=== PATIENT | female | born 1955 | race Caucasian/White ===

== ENCOUNTER 2022-11-02 09:36 | Inpatient (IN) | payer OTHER, MEDICAID ==
[~2022-11-02] VITALS: Ht 157.5 cm; Wt 106.6 kg
[2022-11-02 09:36] VITALS: BP_SYST 139
[2022-11-02] MEDS ORDERED: NITROGLYCERIN 0.4 MG TAB.SUBL SL ONE (10:15)
[2022-11-02] MEDS ORDERED: ICOS1CAP PO (10:16)
[2022-11-02] MEDS ORDERED: SIMV10TA97 PO (10:16)
[2022-11-02] MEDS ORDERED: DIGO125T PO (10:16)
[2022-11-02] MEDS ORDERED: AMLO10TA88 PO (10:16)
[2022-11-02] MEDS ORDERED: CITA40TA16 PO (10:16)
[2022-11-02] MEDS ORDERED: HYDR-500 PO (10:16)
[2022-11-02] MEDS ORDERED: CALC667C4 PO (10:16)
[2022-11-02] MEDS ORDERED: ACETAMINOPHEN 500 MG TABLET PO ONE (10:30)
[2022-11-02 11:01] LABS: BASOPHILS % (AUTO) 0.4 % (0.0-2.0); EOSINOPHILS # (AUTO) 0.6 K/uL (0.0-0.4); EOSINOPHILS % (AUTO) 7.2 % (0.0-4.0); HEMATOCRIT 29.3 % (36-48); HEMOGLOBIN 9.4 g/dL (12.0-16.0); LYMPHOCYTES # (AUTO) 0.7 K/uL (1.0-5.5); LYMPHOCYTES % (AUTO) 8.1 % (20.5-51.5); MEAN CORPUSCULAR HEMOGLOBIN 30 pg (27-31); MEAN CORPUSCULAR HGB CONC 32 % (32-36); MEAN CORPUSCULAR VOLUME 92 fL (79.0-98.0); MONOCYTES # (AUTO) 0.5 K/uL (0.0-1.0); MONOCYTES % (AUTO) 6.4 % (1.7-9.3); NEUTROPHILS # (AUTO) 6.5 K/uL (1.8-7.7); NEUTROPHILS % (AUTO) 77.9 % (40.0-70.0); PLATELET COUNT (AUTO) 279 K/uL (130-430); RED BLOOD CELL COUNT(AUTO) 3.19 MIL/uL (4.2-6.2); RED CELL DISTRIBUTION WIDTH 13.4 % (9.0-15.0); WHITE BLOOD COUNT (AUTO) 8.4 K/uL (4.8-10.8)
[2022-11-02 11:23] LABS: ALANINE AMINOTRANSFERASE 9 U/L (12-78); ALBUMIN 2.9 g/dL (3.4-4.8); ANION GAP 10 (5-15); ASPARTATE AMINOTRANSFERASE 12 U/L (10-37); CALCIUM 8.2 mg/dL (8.4-11.0); CHLORIDE 103 mmol/L (98-107); DIGOXIN 1.9 ng/mL (0.80-2.00); GFR AFRICAN AMERICAN 7 mL/min (>90); GLUCOSE 150 mg/dL (70-99); TOTAL BILIRUBIN 0.4 mg/dL (0.0-1.0); UREA NITROGEN, BLOOD 51 mg/dL (8-21)
[2022-11-02 11:26] LABS: CREATININE 7.82 mg/dL (0.55-1.30)
[2022-11-02 16:40] VITALS: BP_SYST 152
[2022-11-02] MEDS ORDERED: ASPI-1393 PO (17:19)
[2022-11-02 20:00] VITALS: BP_SYST 143
[2022-11-03] MEDS ORDERED: HEPARIN SODIUM,PORCINE 5,000 UNITS/ML VIAL ONE (00:32)
[2022-11-03 01:45] VITALS: BP_SYST 152
[2022-11-03 05:14] LABS: BASOPHILS % (AUTO) 0.6 % (0.0-2.0); EOSINOPHILS # (AUTO) 0.6 K/uL (0.0-0.4); EOSINOPHILS % (AUTO) 6.3 % (0.0-4.0); HEMATOCRIT 31.4 % (36-48); HEMOGLOBIN 10.2 g/dL (12.0-16.0); LYMPHOCYTES # (AUTO) 0.9 K/uL (1.0-5.5); LYMPHOCYTES % (AUTO) 10.7 % (20.5-51.5); MEAN CORPUSCULAR HEMOGLOBIN 30 pg (27-31); MEAN CORPUSCULAR HGB CONC 32 % (32-36); MEAN CORPUSCULAR VOLUME 91 fL (79.0-98.0); MONOCYTES # (AUTO) 0.6 K/uL (0.0-1.0); MONOCYTES % (AUTO) 6.7 % (1.7-9.3); NEUTROPHILS # (AUTO) 6.7 K/uL (1.8-7.7); NEUTROPHILS % (AUTO) 75.7 % (40.0-70.0); PLATELET COUNT (AUTO) 285 K/uL (130-430); RED BLOOD CELL COUNT(AUTO) 3.44 MIL/uL (4.2-6.2); RED CELL DISTRIBUTION WIDTH 13.3 % (9.0-15.0); WHITE BLOOD COUNT (AUTO) 8.8 K/uL (4.8-10.8)
[2022-11-03 05:34] LABS: CALCIUM 8.2 mg/dL (8.4-11.0); CREATININE 5.68 mg/dL (0.55-1.30)
[2022-11-03 07:20] VITALS: BP_SYST 144
[2022-11-03 09:15] VITALS: BP_SYST 144
[2022-11-03] MEDS ORDERED: ASPIRIN 81 MG TABLET(ECOTRIN) PO ONE (10:00)
[2022-11-03] MEDS ORDERED: DIGOXIN 0.125 MG TABLET PO ONE (10:00)
[2022-11-03 11:25] VITALS: BP_SYST 143
[2022-11-03] MEDS ORDERED: ONDANSETRON HCL 4 MG/2 ML VIAL IM PRN (12:30)
[2022-11-03] MEDS ORDERED: ALPRAZolam 0.25 MG TABLET PO PRN (12:30)
[2022-11-03 14:17] VITALS: BP_SYST 143
[2022-11-03] MEDS ORDERED: HEPARIN SODIUM,PORCINE 5,000 UNITS/ML VIAL MC ONE ×2 (14:30→14:45)
[2022-11-03] MEDS ORDERED: CALCIUM ACETATE 667 MG CAP PO SCH (15:00)
[2022-11-03 15:18] VITALS: BP_SYST 142
[2022-11-03] MEDS ORDERED: SIMVASTATIN 10 MG TABLET PO SCH (21:00)
[2022-11-04] MEDS ORDERED: DIGOXIN 0.125 MG TABLET PO SCH (09:00)
[2022-11-04] MEDS ORDERED: ASPIRIN 81 MG TABLET(ECOTRIN) PO SCH (09:00)
[2022-11-04] MEDS ORDERED: amLODIPine BESYLATE 10 MG TABLET PO SCH (09:00)
== END 2022-11-03 17:41 | disposition home or self-care (01) | DRG 291 ==
LOC: SED 09:36 → STU 14:43
PROVIDERS: ADMIT Specialist; ATTEND Specialist
PROC: 5A1D70Z Performance of Urinary Filtration, Intermittent, Less than 6 Hours Per Day (ICD-10-PCS; principal; 2022-11-02)
PROC: 5A1D70Z Performance of Urinary Filtration, Intermittent, Less than 6 Hours Per Day (ICD-10-PCS; 2022-11-03)
DX: I13.2 Hypertensive heart and chronic kidney disease with heart failure and with stage 5 chronic kidney disease, or end stage renal disease (principal); I50.43 Acute on chronic combined systolic (congestive) and diastolic (congestive) heart failure; N18.6 End stage renal disease; Z68.41 Body mass index [BMI] 40.0-44.9, adult; R07.89 Other chest pain; I25.10 Atherosclerotic heart disease of native coronary artery without angina pectoris; E11.22 Type 2 diabetes mellitus with diabetic chronic kidney disease; E78.5 Hyperlipidemia, unspecified; F41.9 Anxiety disorder, unspecified; E11.319 Type 2 diabetes mellitus with unspecified diabetic retinopathy without macular edema; E11.40 Type 2 diabetes mellitus with diabetic neuropathy, unspecified; F32.A Depression, unspecified; E66.01 Morbid (severe) obesity due to excess calories; Z88.0 Allergy status to penicillin; Z91.012 Allergy to eggs
CPT/HCPCS: 36415; 71045; 80048; 80053; 80162; 83880; 84484; 85025; 87081; 90935; 90937; 93005; 99285; C1751; G0378; J1644

== ENCOUNTER 2022-11-09 18:17 | Emergency (ER) | payer OTHER, MEDICAID ==
[~2022-11-09] VITALS: Ht 157.5 cm; Wt 94.8 kg
[~2022-11-09 18:17] MED LIST: AMLO10TA88 PO; ASPI-1393 PO; CALC667C4 PO; CITA40TA16 PO; DIGO125T PO; HYDR-500 PO; ICOS1CAP PO; SIMV10TA97 PO
[2022-11-09] MEDS ORDERED: LIDOCAINE 1% 10 MG/ML, 20 ML MDV INJ ONE (18:45)
[2022-11-09 18:47] VITALS: BP_SYST 151
[2022-11-09 19:18] VITALS: BP_SYST 151
== END 2022-11-09 19:18 | disposition home or self-care (01) ==
LOC: SED 18:17
DX: S41.112A Laceration without foreign body of left upper arm, initial encounter (principal); T81.30XA Disruption of wound, unspecified, initial encounter; I10 Essential (primary) hypertension; Z79.899 Other long term (current) drug therapy; X58.XXXA Exposure to other specified factors, initial encounter; Y93.89 Activity, other specified; Y92.89 Other specified places as the place of occurrence of the external cause; Y99.8 Other external cause status
CPT/HCPCS: 99282

== ENCOUNTER 2022-12-31 19:56 | Inpatient (IN) | payer MEDICAID, OTHER ==
[~2022-12-31] VITALS: Ht 160 cm; Wt 89.8 kg
[2022-12-31 20:00] VITALS: BP_SYST 142; PULSE 71; RESP 22; TEMP 98.7; O2SAT 100
--- NOTE | 2022-12-31 20:00 | NUR ---
BROUGHT IN BY [facility], PLACED IN BED #2 AND TRIAGED. REPORT GIVEN TO ADILSON
--- NOTE | 2022-12-31 20:01 | NUR ---
RT AT BEDSIDE.
[2022-12-31] MEDS ORDERED: IPRATROPIUM BROM 0.5 MG/2.5 ML VIAL.NEB (ATROVENT) INH ONE (20:08)
[2022-12-31] MEDS ORDERED: ALBUTEROL SULFATE 0.083% 2.5 MG/3 ML VIAL.NEB INH ONE (20:08)
--- NOTE | 2022-12-31 20:10 | NUR ---
DR. TURNER AT BEDSIDE EXAMINING THE PATIENT.
[2022-12-31] MEDS ORDERED: IPRATROPIUM/ALBUTEROL SULFATE 3 ML AMPUL.NEB (DUONEB) INH ONE (20:15)
[2022-12-31 20:25] LABS: BASOPHILS % (AUTO) 0.2 % (0.0-2.0); EOSINOPHILS # (AUTO) 0.2 K/uL (0.0-0.4); HEMATOCRIT 33.6 % (36-48); HEMOGLOBIN 10.3 g/dL (12.0-16.0); LYMPHOCYTES # (AUTO) 0.9 K/uL (1.0-5.5); LYMPHOCYTES % (AUTO) 4.5 % (20.5-51.5); MEAN CORPUSCULAR HEMOGLOBIN 27 pg (27-31); MEAN CORPUSCULAR HGB CONC 31 % (32-36); MEAN CORPUSCULAR VOLUME 89 fL (79.0-98.0); MONOCYTES # (AUTO) 0.8 K/uL (0.0-1.0); MONOCYTES % (AUTO) 4.2 % (1.7-9.3); NEUTROPHILS # (AUTO) 18.2 K/uL (1.8-7.7); NEUTROPHILS % (AUTO) 90.1 % (40.0-70.0); PLATELET COUNT (AUTO) 307 K/uL (130-430); RED BLOOD CELL COUNT(AUTO) 3.78 MIL/uL (4.2-6.2); RED CELL DISTRIBUTION WIDTH 14.8 % (9.0-15.0); WHITE BLOOD COUNT (AUTO) 20.2 K/uL (4.8-10.8)
[2022-12-31 20:40] LABS: ALANINE AMINOTRANSFERASE 17 U/L (12-78); ALBUMIN 4.1 g/dL (3.4-4.8); ANION GAP 12 (5-15); ASPARTATE AMINOTRANSFERASE 12 U/L (10-37); CHLORIDE 100 mmol/L (98-107); GFR AFRICAN AMERICAN 3 mL/min (>90); GLUCOSE 138 mg/dL (74-106); TOTAL BILIRUBIN 0.5 mg/dL (0.0-1.0); UREA NITROGEN, BLOOD 93 mg/dL (8-21)
[2022-12-31] MEDS ORDERED: ONDANSETRON HCL 4 MG/2 ML VIAL IVP ONE (20:45)
[2022-12-31 20:46] LABS: CREATININE 16.44 mg/dL (0.55-1.30)
[2022-12-31] MEDS ORDERED: CALCIUM GLUCONATE 1 GM/10 ML VIAL IVP ONE (21:00)
[2022-12-31] MEDS ORDERED: INSULIN REGULAR, HUMAN 10 UNITS/0.1 ML, 3 ML VIAL IVP ONE (21:00)
[2022-12-31] MEDS ORDERED: SODIUM BICARBONATE 8.4% JECT 50 MEQ/50 ML SYRINGE IVP ONE (21:00)
[2022-12-31] MEDS ORDERED: DEXTROSE 50% JECT 50 ML DISP.SYRIN IVP ONE (21:00)
[2022-12-31] MEDS ORDERED: SODIUM POLYSTYRENE SULFONATE 15 GM/60 ML UDBTL PO ONE (21:30)
[2022-12-31] MEDS ORDERED: FUROSEMIDE 100 MG/10 ML VIAL IVP ONE (21:30)
--- NOTE | 2022-12-31 21:49 | NUR ---
Admit bed requested Patient will be admitted to care of Dr. MONSON. Admitted to ICU unit. Diagnosis SEPSIS, RENAL FAILURE, CHF EXACERBATION Inpatient (Yes or No) YES Observation (Yes or No) NO Orientation concerns or request close to nursing station (Yes or No) NO Covid Status PENDING On vent or bipap NO Isolation requirements NONE Needs a sitter NO From Home (Yes or if No enter name of facility) YES Requires Dialysis (Yes or No) YES Med Rec Completed (Yes of No) YES
[2022-12-31] MEDS ORDERED: ACETAMINOPHEN 325 MG TABLET PO ONE (22:00)
[2022-12-31] MEDS ORDERED: NITROGLYCERIN 1 INCH (GM) OINT. TP ONE (22:00)
--- NOTE | 2022-12-31 22:39 | NUR ---
Admit bed requested Patient will be admitted to care of Dr. MONSON. Admitted to TELEMETRY unit. Diagnosis SEPSIS, RENAL FAILURE, CHF EXACERBATION Inpatient (Yes or No) YES Observation (Yes or No) NO Orientation concerns or request close to nursing station (Yes or No) NO Covid Status PENDING On vent or bipap NO Isolation requirements NONE Needs a sitter NO From Home (Yes or if No enter name of facility) YES Requires Dialysis (Yes or No) YES Med Rec Completed (Yes of No) YES
[2022-12-31] MEDS ORDERED: NALOXONE HCL 0.4 MG/ML AMP (NARCAN) IVP PRN ×2 (23:30)
[2022-12-31] MEDS ORDERED: ONDANSETRON HCL 4 MG/2 ML VIAL IVP PRN (23:30)
[2022-12-31] MEDS ORDERED: ACETAMINOPHEN 325 MG TABLET PO PRN (23:30)
[2022-12-31] MEDS ORDERED: HYDROcodone/ACETAMIN 5-325 MG TAB (NORCO/ VICODIN) PO PRN (23:30)
--- NOTE | 2022-12-31 23:30 | NUR ---
Patient will be admitted to care of DR. MONSON. Admitted to TELEMETRY unit. Will go to room 105A. Belongings list completed. Complete and up to date summary report printed. SBAR report to be given at bedside with opportunity for questions.
--- NOTE | 2022-12-31 23:55 | NUR ---
UNABLE TO UPDATE MEDICATION RECONCILIATION, DR. MONSON VERIFIED MEDS.
[2023-01-01] VITALS (8 sets, daily range): BP systolic 105–141; PULSE 68–88; RESP 16–22; TEMP 97.2–98.1; O2SAT 95–99
[2023-01-01] MEDS ORDERED: MORPHINE 4 MG INJ. 4 MG/ML VIAL IVP ONE
--- NOTE | 2023-01-01 00:15 | NUR ---
ADMISSION NOTE Received patient from ER via gurney. Patient admitted with diagnosis of Renal Failure and sepsis. at bedside. PT reported SOB. Breathing via NC O2 3L. Patient is awake, alert, oriented X 4. Patient oriented to hospital room, call light, toileting, pain management and safety-teach back done. Personal belongings checked and Belongings List documented. Call light within reach. Continue to monitor
--- NOTE | 2023-01-01 00:20 | NUR ---
CONSULTATION PAGED/CALLED Reason for Consultation: RENAL FAILURE Person Who was Notified: ADEBAYO Consulting Physician: DR. PEACE/DR. 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 IONA PEREZ
[2023-01-01] MEDS ORDERED: HEPARIN SODIUM, PORCINE 10,000 UNITS/ 10 ML VIAL MC ONE (01:15)
[2023-01-01] MEDS: HYDROcodone/ACETAMIN 10-325 MG TAB PO PRN ×4 (03:48→18:39)
--- NOTE | 2023-01-01 03:49 | NUR ---
CONSULTATION PAGED/CALLED Reason for Consultation: LEUKOCYTOSIS Person Who was Notified: PEE Consulting Physician: DAVID Manufacturing Plant Controller Specialty: ID Ordering Physician: ADA
--- NOTE | 2023-01-01 04:13 | NUR ---
CONSULTATION PAGED/CALLED Reason for Consultation: CHF Person Who was Notified: MINA VIA TEXT Consulting Physician: MINA Corsetier Specialty: CARDIO Ordering Physician: ADA
--- NOTE | 2023-01-01 05:32 | NUR ---
HEPARIN THERE WAS ORDER FOR HEPARIN. DIALYSIS NURSE GAVE HER THROUGH [facility].
--- NOTE | 2023-01-01 06:18 | NUR ---
CHEST PAIN PT REPORTED CHEST PAIN 02/02 WHILE BREATHING. PT ALREADY GIVEN NORCO 10, DOESN'T RELIEVE PAIN. CALLED DR. MONSON FOR NEW ORDER FOR PAIN.
--- NOTE | 2023-01-01 06:24 | NUR ---
HIGH ALERT NOTE: Called Dr. MONSON back at 0620. ORDERED MORPHINE 2mg IV ONCE. identified within the medical roster to verify physician authenticity.
[2023-01-01] MEDS: NORMAL SALINE 5 ML DISP.SYRIN IVF SCH ×3 (06:27→20:15)
[2023-01-01] MEDS ORDERED: MORPHINE 2 MG/ML INJ. SYRINGE IVP ONE (06:30)
--- NOTE | 2023-01-01 06:59 | NUR ---
CLOSING NOTE PT LYING IN BED AND EYES OPEN. A/OX4. BREATHING LABORED VIA NC O2 3L. LUNG SOUNDS CLEAR. PAIN GOES DOWN. SAFETY CHECKS IN PLACE. CALL LIGHT IN REACH. ENDORSED TO DAY SHIFT NURSE
[2023-01-01 07:57] LABS: CALCIUM 8.5 mg/dL (8.4-11.0); PHOSPHORUS 6.3 mg/dL (2.7-4.5)
[2023-01-01 08:05] LABS: BASOPHILS # (AUTO) 0.1 K/uL (0.0-0.2); BASOPHILS % (AUTO) 0.6 % (0.0-2.0); EOSINOPHILS % (AUTO) 0.1 % (0.0-4.0); HEMATOCRIT 31.3 % (36-48); HEMOGLOBIN 9.6 g/dL (12.0-16.0); LYMPHOCYTES # (AUTO) 0.5 K/uL (1.0-5.5); LYMPHOCYTES % (AUTO) 3.4 % (20.5-51.5); MEAN CORPUSCULAR HEMOGLOBIN 27 pg (27-31); MEAN CORPUSCULAR HGB CONC 31 % (32-36); MEAN CORPUSCULAR VOLUME 88 fL (79.0-98.0); MONOCYTES # (AUTO) 0.8 K/uL (0.0-1.0); MONOCYTES % (AUTO) 5.7 % (1.7-9.3); NEUTROPHILS # (AUTO) 12.9 K/uL (1.8-7.7); NEUTROPHILS % (AUTO) 90.2 % (40.0-70.0); PLATELET COUNT (AUTO) 237 K/uL (130-430); RED BLOOD CELL COUNT(AUTO) 3.54 MIL/uL (4.2-6.2); RED CELL DISTRIBUTION WIDTH 14.7 % (9.0-15.0)
--- NOTE | 2023-01-01 08:11 | NUR ---
Opening note: Patient on bed, resting with at bedside. On 3 liters nasal canula. LT arm shunt for dialysis IV on right arm, patent, no s/s of infiltration or edema. No s/s of SOB, discomfort and denies pain. Bed set at lowest position, locked, HOB elevated. All safety and fall risk precautions put into affect. Call light within reach. WIll continue to monitor.
[2023-01-01 08:32] LABS: CREATININE 11.27 mg/dL (0.55-1.30)
[2023-01-01] MEDS ORDERED: NON-FORMULARY MEDICATION (Icosapent Ethyl (Vascepa) 2 CAP) PO SCH (09:00)
--- NOTE | 2023-01-01 09:00 | NUR ---
MD DR. GARCIA, ON UNIT ROPUNDING ON PATIENT. MADE AWARE OF CRITICAL CREATINE 11.27. NO NEW ORDERS.
[2023-01-01 09:01] LABS: WHITE BLOOD COUNT (AUTO) 14.3 K/uL (4.8-10.8)
--- NOTE | 2023-01-01 09:20 | NUR ---
Meds Patient found in room. Tolerated meds well. IV flushed, patent, no s/s of infiltration or edema.
[2023-01-01] MEDS: CALCIUM ACETATE 667 MG CAP PO SCH ×3 (09:33→20:14)
[2023-01-01] MEDS: DIGOXIN 0.125 MG TABLET PO SCH (09:34)
[2023-01-01] MEDS: amLODIPine BESYLATE 10 MG TABLET PO SCH (09:35)
[2023-01-01] MEDS: CITALOPRAM HYDROBROMIDE 20 MG TABLET PO SCH (09:35)
[2023-01-01] MEDS: ASPIRIN 81 MG TABLET(ECOTRIN) PO SCH (09:36)
--- NOTE | 2023-01-01 11:20 | NUR ---
Critical Labs: Received critical labs from Kirti at lab. Dr. Mijares received critical labs (D-Dimer), (facetoface) in hospital. Addendum: 01/01/23 at 1840 by Yamile SPENCERN Per Dr. Mijares. No new orders needed.
[2023-01-01] MEDS ORDERED: FUROSEMIDE 40 MG/4 ML VIAL IVP ONE (12:00)
[2023-01-01] MEDS ORDERED: CARVEDILOL 3.125 MG TABLET (COREG) PO ONE (12:15)
[2023-01-01] MEDS: DIPHENHYDRAMINE HCL 50 MG CAPSULE PO PRN (14:35)
--- NOTE | 2023-01-01 15:10 | NUR ---
Radiologist: Per radiologist tech. Need to r/s exam due to patient feeling drowsy and not able to continue exam. Will proceed tomorrow morning. Checked IV and is patent, no infiltration or edema present. Patient felt SOB when returning from radiology exam. Calld Addendum: 01/01/23 at 1848 by Yamile SPENCERN Radiologist: Per radiologist tech. Need to r/s exam due to patient feeling drowsy and not able to continue exam. Will proceed tomorrow morning. Checked IV and is patent, no infiltration or edema present. Patient felt SOB when returning from radiology exam. Called Dr. Yuen: Request new order for respiratory therapist. New order in place for RT.
[2023-01-01] MEDS ORDERED: IPRATROPIUM/ALBUTEROL SULFATE 3 ML AMPUL.NEB (DUONEB) ONE (16:42)
[2023-01-01] MEDS ORDERED: IPRATROPIUM/ALBUTEROL SULFATE 3 ML AMPUL.NEB (DUONEB) INH PRN (16:45)
--- NOTE | 2023-01-01 18:48 | NUR ---
Closing note: Patient in bed with family at bedside eating dinner. IV patent, no signs of infiltration or edema.Bed set at lowest position, locked, call light within reach. Fall risk and safety precautions put into affect. Patient is alert , states she has RT arm pain. No labored breathing present. Will endorse to next shift nurse.
[2023-01-01] MEDS: CARVEDILOL 3.125 MG TABLET (COREG) PO SCH (20:14)
[2023-01-01] MEDS: SIMVASTATIN 10 MG TABLET PO SCH (20:14)
--- NOTE | 2023-01-01 20:21 | NUR ---
IV RE-INSERTION: Complaining of pain/Sswelling to IV site. Restarted on right wrist g. 22 . Successful after 1 attempt. Will observe for any signs of infiltration. Addendum: 01/01/23 at 2137 by Sandi Calix RN elevate right arm to pillow due to swelling
[2023-01-01] MEDS: ICOSAPENT ETHYL PO SCH (21:17)
--- NOTE | 2023-01-01 22:37 | NUR ---
PATIENT RESTING: Patient resting quietly. No acute distress noted. telemetry NSR
[2023-01-02] VITALS: BP_SYST 151; PULSE 57; RESP 20; TEMP 97.1; O2SAT 94
--- NOTE | 2023-01-02 00:52 | NUR ---
Seen and examined by Dr. Philip Beltre with n.o. carried out
[2023-01-02] MEDS ORDERED: VANCOMYCIN HCL 1 GM/NS PREMIX 250 ML IV ONE (01:15)
[2023-01-02] MEDS: HYDROcodone/ACETAMIN 10-325 MG TAB PO PRN (02:37)
[2023-01-02 02:43] VITALS: BP_SYST 152; PULSE 62; RESP 20; O2SAT 93
[2023-01-02 05:26] LABS: BASOPHILS % (AUTO) 0.2 % (0.0-2.0); EOSINOPHILS # (AUTO) 0.2 K/uL (0.0-0.4); EOSINOPHILS % (AUTO) 1.7 % (0.0-4.0); HEMATOCRIT 30.1 % (36-48); HEMOGLOBIN 9.3 g/dL (12.0-16.0); LYMPHOCYTES # (AUTO) 0.7 K/uL (1.0-5.5); LYMPHOCYTES % (AUTO) 6.3 % (20.5-51.5); MEAN CORPUSCULAR HEMOGLOBIN 28 pg (27-31); MEAN CORPUSCULAR HGB CONC 31 % (32-36); MEAN CORPUSCULAR VOLUME 89 fL (79.0-98.0); MONOCYTES # (AUTO) 0.9 K/uL (0.0-1.0); MONOCYTES % (AUTO) 7.9 % (1.7-9.3); NEUTROPHILS % (AUTO) 83.9 % (40.0-70.0); PLATELET COUNT (AUTO) 202 K/uL (130-430); RED BLOOD CELL COUNT(AUTO) 3.37 MIL/uL (4.2-6.2); RED CELL DISTRIBUTION WIDTH 14.7 % (9.0-15.0); WHITE BLOOD COUNT (AUTO) 11.9 K/uL (4.8-10.8)
[2023-01-02 05:27] LABS: ERYTHROCYTE SEDIMENTATION RATE 56 MM/HR (0-20)
[2023-01-02 06:00] LABS: ALBUMIN 3.7 g/dL (3.4-4.8); PHOSPHORUS 8.5 mg/dL (2.7-4.5); TOTAL BILIRUBIN 0.5 mg/dL (0.0-1.0)
[2023-01-02] MEDS: NORMAL SALINE 5 ML DISP.SYRIN IVF SCH ×3 (06:04→21:05)
[2023-01-02 06:07] LABS: CREATININE 12.99 mg/dL (0.55-1.30)
[2023-01-02 07:00] VITALS: O2SAT 95
[2023-01-02] MEDS ORDERED: VANCOMYCIN HCL 500 MG in NS 100 ML IV ONE (08:00)
[2023-01-02] MEDS: ICOSAPENT ETHYL PO SCH ×2 (09:00→21:13)
[2023-01-02] MEDS: CARVEDILOL 3.125 MG TABLET (COREG) PO SCH ×2 (09:00→21:05)
[2023-01-02] MEDS: CALCIUM ACETATE 667 MG CAP PO SCH ×3 (09:32→21:04)
[2023-01-02 10:57] VITALS: BP_SYST 140; PULSE 79; RESP 17; O2SAT 97
[2023-01-02] MEDS ORDERED: HEPARIN SODIUM,PORCINE 5,000 UNITS/ML VIAL MC ONE (11:30)
[2023-01-02] MEDS ORDERED: HYDROCORTISONE 0.5% CREAM 28.4 GM CREAM.GM. TP PRN ×2 (11:30)
[2023-01-02] MEDS: CITALOPRAM HYDROBROMIDE 20 MG TABLET PO SCH (12:55)
[2023-01-02] MEDS: ASPIRIN 81 MG TABLET(ECOTRIN) PO SCH (12:55)
[2023-01-02] MEDS: amLODIPine BESYLATE 10 MG TABLET PO SCH (12:57)
[2023-01-02] MEDS: DIGOXIN 0.125 MG TABLET PO SCH (12:59)
[2023-01-02] MEDS ORDERED: predniSONE 20 MG TABLET PO ONE (13:15)
[2023-01-02 16:49] VITALS: BP_SYST 119; PULSE 78; RESP 17; TEMP 97.6; O2SAT 97
[2023-01-02 20:10] VITALS: BP_SYST 155; PULSE 64; RESP 20; TEMP 96.6; O2SAT 97
--- NOTE | 2023-01-02 20:10 | NUR ---
PM ASSESSMENT; -Patient is awake, alert, oriented X 4. Pt denies any chest pain,pain,sob,or acute distress noted. Patient oriented to hospital room, call light, toileting, pain management and safety-teach back done. Hemodialysis on rt chest wall drsg cdi. AILYN-another hemodialysis access drsg cdi. Patient informed that I ( Sabrina) will be her nurse and that her room number is 105-A. Discussed poc, all safety measures, or if experiencing any pain,sob,or any acute distress to use call light to inform me, family & she verbalized understanding. Bed alarmed, side rail x2, call light within reach. Cont to monitor pt.
[2023-01-02] MEDS ORDERED: HEPARIN SODIUM,PORCINE 5,000 UNITS/ML VIAL SUBCUT SCH (21:00)
[2023-01-02] MEDS: predniSONE 20 MG TABLET PO SCH (21:04)
[2023-01-02] MEDS: SIMVASTATIN 10 MG TABLET PO SCH (21:04)
--- NOTE | 2023-01-02 21:30 | NUR ---
PATIENT DOING MUCH BETTER BREATHING EFFECTIVE. JOSELIN KWOK AND WILL RECEIVE AGAIN TOMORROW THEN WILL BE DISCHARGE IF NO FURTHER PROBLEMS.
--- NOTE | 2023-01-02 22:44 | NUR ---
RD Recommendations *Recommend Renal, Consistent Carb Diet + Nepro BID -Recommend chopped textures with moist foods for ease of chewing and swallowing. -ordered *Monitor PO intakes, GI, skin, and labs Please refer to RD Assessment 01/02/23 for details MADYSON HUYNH Addendum: 01/02/23 at [address] Amended: Links added.
--- NOTE | 2023-01-03 00:21 | NUR ---
ROUNDS; -Pt is resting in bed comfortably. Pt denies any chest pain,pain,sob,or acute distress noted. Fall precaution in place. Bed alarmed, side rail x2, call light within reach. Cont to monitor pt.
[2023-01-03 01:15] VITALS: BP_SYST 145; PULSE 58; RESP 16; TEMP 97.5; O2SAT 95
[2023-01-03 03:07] LABS: HEPATITIS A AB, IgM Negative (Negative); HEPATITIS B CORE AB, IgM Negative (Negative); HEPATITIS B SURFACE AG Negative (Negative)
--- NOTE | 2023-01-03 04:18 | NUR ---
ROUNDS; -Pt is resting in bed comfortably. NO s/s any chest pain,pain,sob,or acute distress noted. Fall precaution in place. Bed alarmed, side rail x2, call light within reach. Cont to monitor pt.
[2023-01-03] MEDS: NORMAL SALINE 5 ML DISP.SYRIN IVF SCH ×3 (05:44→20:22)
--- NOTE | 2023-01-03 06:26 | NUR ---
CLOSING NOTES; -Pt is resting in bed comfortably. NO s/s any chest pain,pain,sob,or acute distress noted. IV site patent drsg cdi. Fall precaution in place. Bed alarmed, side rail x3, call light within reach. Pt's condition stable. Will endorse to next nurse to continuity of care.
[2023-01-03 06:50] LABS: BASOPHILS % (AUTO) 0.3 % (0.0-2.0); HEMOGLOBIN 9.1 g/dL (12.0-16.0); LYMPHOCYTES # (AUTO) 0.5 K/uL (1.0-5.5); LYMPHOCYTES % (AUTO) 8.5 % (20.5-51.5); MEAN CORPUSCULAR HEMOGLOBIN 28 pg (27-31); MEAN CORPUSCULAR HGB CONC 31 % (32-36); MEAN CORPUSCULAR VOLUME 89 fL (79.0-98.0); MONOCYTES # (AUTO) 0.2 K/uL (0.0-1.0); MONOCYTES % (AUTO) 2.7 % (1.7-9.3); NEUTROPHILS % (AUTO) 88.5 % (40.0-70.0); PLATELET COUNT (AUTO) 201 K/uL (130-430); RED BLOOD CELL COUNT(AUTO) 3.26 MIL/uL (4.2-6.2); RED CELL DISTRIBUTION WIDTH 14.7 % (9.0-15.0); WHITE BLOOD COUNT (AUTO) 5.7 K/uL (4.8-10.8)
--- NOTE | 2023-01-03 07:19 | NUR ---
NOTES; ENDORSED TO MELLISSA TO ASK DR. VALDES IF HE WANTS TO ORDER HEMODIALYSIS TODAY.
[2023-01-03 07:56] LABS: CALCIUM 8.5 mg/dL (8.4-11.0); VANCOMYCIN,RANDOM 6.4 ug/mL
[2023-01-03 08:00] VITALS: BP_SYST 133; PULSE 63; RESP 20; TEMP 96.8; O2SAT 95
--- NOTE | 2023-01-03 08:00 | NUR ---
A/OX4,VSS,ON O2 3L/NC,SAT 95%,RESPIRATES EVEN AND UNLABORED NEEDS ATTENDED,CALL LIGHT & PERSONAL ITEMS WITHIN PT REACH SAFETY MAINTAINED.
[2023-01-03 08:02] LABS: CREATININE 10.32 mg/dL (0.55-1.30)
[2023-01-03] MEDS: ICOSAPENT ETHYL PO SCH ×3 (09:00→20:22)
[2023-01-03] MEDS: amLODIPine BESYLATE 10 MG TABLET PO SCH (09:29)
[2023-01-03] MEDS: CALCIUM ACETATE 667 MG CAP PO SCH ×3 (09:29→20:20)
[2023-01-03] MEDS: ASPIRIN 81 MG TABLET(ECOTRIN) PO SCH (09:30)
[2023-01-03] MEDS: DIGOXIN 0.125 MG TABLET PO SCH (09:30)
[2023-01-03] MEDS: predniSONE 20 MG TABLET PO SCH ×2 (09:30→20:21)
[2023-01-03] MEDS: CITALOPRAM HYDROBROMIDE 20 MG TABLET PO SCH (09:30)
[2023-01-03] MEDS: CARVEDILOL 3.125 MG TABLET (COREG) PO SCH ×2 (09:30→20:21)
[2023-01-03 12:00] VITALS: BP_SYST 162; PULSE 69; RESP 18; TEMP 97.1; O2SAT 96
--- NOTE | 2023-01-03 12:00 | NUR ---
PT CONTINUE RESTING IN BED,BUT IV IN RIGHT ARM CAME OUT,UNABLE TO RESTART D/T HARD STICK, CALLED AND NOTIFIED,HE SAID HE WILL COME TO SEE THE PATIENT.
[2023-01-03] MEDS ORDERED: VANCOMYCIN HCL 750 MG in NS 250 ML IV ONE (14:00)
[2023-01-03] MEDS: DIPHENHYDRAMINE HCL 50 MG CAPSULE PO PRN ×2 (14:44→21:07)
[2023-01-03] MEDS: HYDROcodone/ACETAMIN 10-325 MG TAB PO PRN (14:44)
--- NOTE | 2023-01-03 15:00 | NUR ---
PT C/O CHEST PAIN WITH BREATHING,GIVE NORCO 1 TAB PO PRN ORDER FOR SEVERE PAIN CAME AND SEEN PT AND AWARED OF PT HAS CP.PT NOT FOR D/C TODAY AND OBTAINED ORDER FOR MIDLINE.
[2023-01-03] MEDS ORDERED: PANTOPRAZOLE SODIUM 40 MG TAB PO ONE (15:15)
--- NOTE | 2023-01-03 16:22 | NUR ---
>>>PT NOTES<<< PATIENT REFUSED PHYSICAL THERAPY AND STATES SHE IS TIRED TO PARTICIPATE TODAY. WILL FOLLOW UP TOMORROW, 01/04/23.
--- NOTE | 2023-01-03 17:00 | NUR ---
dialysis nurse carmel called and said she just spoke to tooth grinder that pt had HD yesterday and next HD will be tomorrow.
[2023-01-03] MEDS: SUCRALFATE 1 GM/10 ML UDC GT SCH ×2 (17:14→20:20)
[2023-01-03 17:29] VITALS: BP_SYST 152; PULSE 60; RESP 20; TEMP 97; O2SAT 96
--- NOTE | 2023-01-03 18:26 | NUR ---
midline inserted by picc line nurse in right upper arm,pt tolerated well.
[2023-01-03 19:42] VITALS: BP_SYST 136; PULSE 66; RESP 18; TEMP 97.5; O2SAT 96
--- NOTE | 2023-01-03 19:42 | NUR ---
PM ASSESSMENT; -Patient is awake, alert, oriented X 4. Pt denies any chest pain,pain,sob,or acute distress noted. Patient oriented to hospital room, call light, toileting, pain management and safety-teach back done. Hemodialysis on rt chest wall drsg cdi. AILYN-another hemodialysis access drsg cdi. Pt has JORGE midline drsg cdi both ports patent flushed well w/ ns. Discussed poc, all safety measures, or if experiencing any pain,sob,or any acute distress to use call light to inform me, family & she verbalized understanding. Bed alarmed, side rail x3, call light within reach. Cont to monitor pt.
[2023-01-03] MEDS: SIMVASTATIN 10 MG TABLET PO SCH (20:21)
[2023-01-03] MEDS: LORazepam 2 MG/ML VIAL IVP PRN (22:42)
--- NOTE | 2023-01-03 22:42 | NUR ---
NOTES; ATIVAN IVP GIVEN UPON PT'S REQUEST -Pt is anxious, gave Ativan IVP upon pt's request. Call light w/in reach. Cont to monitor pt.
--- NOTE | 2023-01-03 23:47 | NUR ---
ROUNDS; -Pt is resting in bed comfortably. No s/s any acute distress noted. Bed alarmed, side rail x3, call light within reach. Cont to monitor pt.
[2023-01-04] VITALS (7 sets, daily range): BP systolic 120–165; PULSE 62–73; RESP 16–20; TEMP 97.1–97.9; O2SAT 94–99
--- NOTE | 2023-01-04 04:22 | NUR ---
NOTES; -Pt is resting in bed comfortably. No s/s any acute distress noted. All safety measures in place. Call light w/in reach. cont to monitor pt.
[2023-01-04 06:13] LABS: BASOPHILS % (AUTO) 0.4 % (0.0-2.0); HEMATOCRIT 29.5 % (36-48); HEMOGLOBIN 9.2 g/dL (12.0-16.0); LYMPHOCYTES # (AUTO) 0.5 K/uL (1.0-5.5); LYMPHOCYTES % (AUTO) 5.7 % (20.5-51.5); MEAN CORPUSCULAR HEMOGLOBIN 28 pg (27-31); MEAN CORPUSCULAR HGB CONC 31 % (32-36); MEAN CORPUSCULAR VOLUME 89 fL (79.0-98.0); MONOCYTES # (AUTO) 0.2 K/uL (0.0-1.0); MONOCYTES % (AUTO) 2.1 % (1.7-9.3); NEUTROPHILS # (AUTO) 7.6 K/uL (1.8-7.7); NEUTROPHILS % (AUTO) 91.8 % (40.0-70.0); PLATELET COUNT (AUTO) 250 K/uL (130-430); RED BLOOD CELL COUNT(AUTO) 3.33 MIL/uL (4.2-6.2); RED CELL DISTRIBUTION WIDTH 14.4 % (9.0-15.0); WHITE BLOOD COUNT (AUTO) 8.3 K/uL (4.8-10.8)
[2023-01-04] MEDS: NORMAL SALINE 5 ML DISP.SYRIN IVF SCH ×3 (06:31→20:57)
[2023-01-04] MEDS: SUCRALFATE 1 GM/10 ML UDC GT SCH ×4 (06:31→20:56)
--- NOTE | 2023-01-04 06:33 | NUR ---
CLOSING NOTES; -Pt is resting in bed comfortably. NO s/s any chest pain,pain,sob,or acute distress noted. JORGE midline patent drsg cdi. Fall precaution in place. Bed alarmed, side rail x3, call light within reach. Pt's condition stable. Will endorse to next nurse to continuity of care.
[2023-01-04 06:53] LABS: ALBUMIN 3.5 g/dL (3.4-4.8); CALCIUM 8.5 mg/dL (8.4-11.0); TOTAL BILIRUBIN 0.3 mg/dL (0.0-1.0); VANCOMYCIN,RANDOM 15.1 ug/mL
[2023-01-04 07:02] LABS: CREATININE 11.82 mg/dL (0.55-1.30)
--- NOTE | 2023-01-04 07:26 | NUR ---
NOTES; ENDORSED TO LEE GONZALES TO NOTIFY MD REGARDING CRITICAL LAB=K=5.9 AND CREAT=11.82.
--- NOTE | 2023-01-04 08:00 | NUR ---
pt A/Ox4,vss,resting well in bed,on O2 3L/NC,sat 97%, called and notified him of K level 5.9 and creatinine 11.82 per am lab,pt due for HD today per dr stanley.
[2023-01-04] MEDS: LORazepam 2 MG/ML VIAL IVP PRN (08:51)
[2023-01-04] MEDS: ICOSAPENT ETHYL PO SCH ×2 (09:00→20:59)
--- NOTE | 2023-01-04 12:00 | NUR ---
pt had HD done and removed 3L per HD nurse, pt tolerated procedure well.give schedule meds due pt is compliant of meds and no n/v.
--- NOTE | 2023-01-04 12:30 | NUR ---
Nutrition Note RD was consulted by nursing staff to visit pt and . RD discussed current diet w/ them (Renal, CCHO, chopped diet w/ Nepro BID) and obtained food preferences from pt and at bedside. Food preferences noted in [employer] and relayed to appropriate FNS staff. Pt was concerned w/ her swallow function -- RD suggested possible swallow eval by ST if physician agrees. Pt was interested. RD relayed to nursing staff. RD to continue to follow as per nutrition care standards.
[2023-01-04] MEDS: CALCIUM ACETATE 667 MG CAP PO SCH ×3 (12:37→20:56)
[2023-01-04] MEDS: ASPIRIN 81 MG TABLET(ECOTRIN) PO SCH (12:37)
[2023-01-04] MEDS: predniSONE 20 MG TABLET PO SCH ×2 (12:37→20:55)
[2023-01-04] MEDS: PANTOPRAZOLE SODIUM 40 MG TAB PO SCH (12:37)
[2023-01-04] MEDS: amLODIPine BESYLATE 10 MG TABLET PO SCH (12:38)
[2023-01-04] MEDS: CARVEDILOL 3.125 MG TABLET (COREG) PO SCH ×2 (12:38→20:56)
[2023-01-04] MEDS: CITALOPRAM HYDROBROMIDE 20 MG TABLET PO SCH (12:38)
[2023-01-04] MEDS: DIGOXIN 0.125 MG TABLET PO SCH (12:39)
--- NOTE | 2023-01-04 15:28 | NUR ---
PATIENT REFUSED PT TREATMENT TODAY D/T FEELING TOO TIRED. WILL TRY AGAIN TOMORROW.
--- NOTE | 2023-01-04 16:00 | NUR ---
vss,pt sleeping well in bed,hourly rounds made,safety maintained. continue to monitor pt.
--- NOTE | 2023-01-04 16:29 | NUR ---
ST EVALUATION COMPLETED. ST TX NOT INDICATED AT THIS TIME. RECOMMEND PO DIET OF PUREE AND THIN LIQUIDS PER PT PREFERENCE DUE TO DISCOMFORT WITH SWALLOW. DISTANT SUPERVISION AND FULL ASPIRATION PRECAUTIONS.
[2023-01-04] MEDS: SIMVASTATIN 10 MG TABLET PO SCH (20:57)
[2023-01-05 04:48] LABS: BASOPHILS % (AUTO) 0.1 % (0.0-2.0); HEMATOCRIT 29.3 % (36-48); HEMOGLOBIN 9.3 g/dL (12.0-16.0); LYMPHOCYTES # (AUTO) 0.4 K/uL (1.0-5.5); MEAN CORPUSCULAR HEMOGLOBIN 28 pg (27-31); MEAN CORPUSCULAR HGB CONC 32 % (32-36); MEAN CORPUSCULAR VOLUME 88 fL (79.0-98.0); MONOCYTES # (AUTO) 0.2 K/uL (0.0-1.0); NEUTROPHILS # (AUTO) 7.3 K/uL (1.8-7.7); NEUTROPHILS % (AUTO) 92.9 % (40.0-70.0); PLATELET COUNT (AUTO) 274 K/uL (130-430); RED BLOOD CELL COUNT(AUTO) 3.34 MIL/uL (4.2-6.2); RED CELL DISTRIBUTION WIDTH 14.4 % (9.0-15.0); WHITE BLOOD COUNT (AUTO) 7.9 K/uL (4.8-10.8)
[2023-01-05 05:10] LABS: CALCIUM 8.5 mg/dL (8.4-11.0); VANCOMYCIN,RANDOM 10.8 ug/mL
[2023-01-05 05:33] LABS: CREATININE 8.27 mg/dL (0.55-1.30)
[2023-01-05] MEDS: NORMAL SALINE 5 ML DISP.SYRIN IVF SCH ×3 (06:05→21:39)
[2023-01-05] MEDS: SUCRALFATE 1 GM/10 ML UDC GT SCH ×4 (06:06→20:45)
[2023-01-05 08:30] VITALS: BP_SYST 151; PULSE 62; RESP 18; TEMP 97.7; O2SAT 97
[2023-01-05] MEDS: CALCIUM ACETATE 667 MG CAP PO SCH ×3 (08:34→20:46)
[2023-01-05] MEDS: CITALOPRAM HYDROBROMIDE 20 MG TABLET PO SCH (08:36)
[2023-01-05] MEDS: DIGOXIN 0.125 MG TABLET PO SCH (08:47)
[2023-01-05] MEDS: amLODIPine BESYLATE 10 MG TABLET PO SCH (08:49)
[2023-01-05] MEDS: CARVEDILOL 3.125 MG TABLET (COREG) PO SCH ×2 (08:49→20:45)
[2023-01-05] MEDS: PANTOPRAZOLE SODIUM 40 MG TAB PO SCH (08:50)
[2023-01-05] MEDS: predniSONE 20 MG TABLET PO SCH ×2 (08:50→20:45)
[2023-01-05] MEDS: ICOSAPENT ETHYL PO SCH ×2 (08:52→20:48)
[2023-01-05] MEDS: ASPIRIN 81 MG TABLET(ECOTRIN) PO SCH (08:52)
--- NOTE | 2023-01-05 10:33 | NUR ---
PT RECEIVED LYING IN BED SLEEPING IN SUPINE POSITION WITH HOB ELEVATED 30 DEGREES, EASILY AROUSABLE. A/OX4, CALM AND COOPERATIVE. DENIES CHEST PAIN, PALPITATION AND DIZZINESS. PERIPHERAL PULSES PALPABLE, NO EDEMA. RESPIRATIONS EVEN UNLABORED, DIMINISHED, 3L NC, DENIES SOB. BS ACTIVE, ABD SOFT AND ROUND, NON TENDER, DENIES N/V, LBM 01/01. VOIDS, REPORTS DECREASED UOP. GENERALIZED WEAKNESS, BEDREST, ABLE TO SELF TURN. SKIN INTACT. C/O ITCHING - HYDROXYZINE ADMINISTERED ORDERED. DENIES PAIN. JORGE MIDLINE, PATENT, NO COMPLICATIONS TO SITE. RCPC, NO BLEEDING, OR REDNESS NOTED, DRESSING C/D/I. LAVF, NON FUNCTIONAL. BED IN LOWEST POSITION, SIDE RAILS X 2, CALL LIGHT WITHIN REACH
[2023-01-05 11:47] VITALS: BP_SYST 151; PULSE 64; RESP 18; TEMP 98.1; O2SAT 97
[2023-01-05] MEDS ORDERED: BENZOCAINE/MENTHOL 1 EACH LOZENGE MM PRN (14:00)
[2023-01-05] MEDS ORDERED: DEXTROMET/BENZOCAIN/MENTHOL SF 1 LOZENGE MM ONE (14:00)
[2023-01-05] MEDS ORDERED: BENZOCAINE/MENTHOL 1 EACH LOZENGE MM ONE (14:00)
--- NOTE | 2023-01-05 14:35 | NUR ---
PHYSICAL THERAPY CO-SIGN The Physical Therapy Progress Notes documented by [employer] Chauffeur have been reviewed. Reviewed/Co-Signed by: Carlos Lloyd Documentation Done by:AKIRA ARMANDO Addendum: 01/05/23 at 1436 by Carlos Lloyd PT Amended: Links added.
--- NOTE | 2023-01-05 15:15 | NUR ---
RT NOTE: 1515 Tried to draw ABG on first attempt, but unsuccessful. Patient did not want me to try again. Will ask to draw again later. SpO2 was between 83-85% while off of the oxygen.
[2023-01-05 15:34] VITALS: BP_SYST 138; PULSE 57; RESP 18; TEMP 97.5; O2SAT 95
[2023-01-05] MEDS: HYDROcodone/ACETAMIN 10-325 MG TAB PO PRN ×2 (17:45→18:54)
[2023-01-05] MEDS ORDERED: DEXTROMET/BENZOCAIN/MENTHOL SF 1 LOZENGE MM PRN (18:00)
[2023-01-05] MEDS ORDERED: KETOROLAC TROMETHAMINE 15 MG VIAL IM ONE (19:45)
--- NOTE | 2023-01-05 19:45 | NUR ---
PT C/O BLOOD DRAW FROM PREVIOUS SHIFT. PT STATED THEY WERE " FISHING" FOR THE VEIN AND CAUSED A LOT OF PAIN. PT ALSO UPSET AT BEDSIDE.
[2023-01-05 20:00] VITALS: BP_SYST 144; PULSE 64; RESP 18; TEMP 97.7; O2SAT 98
[2023-01-05] MEDS: SIMVASTATIN 10 MG TABLET PO SCH (20:45)
--- NOTE | 2023-01-05 20:45 | NUR ---
PT EDUCATED THOROUGHLY ON MEDICATIONS. PT AGREED ON ALL MEDICATION EXCEPT BENADRYL. PT WANTED MEDICATION FOR ITCHINESS BUT PRN GIVEN 3 HOURS PRIOR AND NOT DUE AT THIS TIME. PT EDUCATED AND VERBALIZED UNDERSTANDING THAT IT IS AVAILABLE EVERY 6 HOURS NEEDED
[2023-01-05] MEDS: DIPHENHYDRAMINE HCL 50 MG CAPSULE PO PRN (20:56)
[2023-01-05 22:00] VITALS: O2SAT 98
[2023-01-05] MEDS: NYSTATIN 500,000 UNITS/5 ML UDC PO SCH (22:22)
[2023-01-06] MEDS: NYSTATIN 500,000 UNITS/5 ML UDC PO SCH ×2 (06:54→14:09)
[2023-01-06] MEDS: SUCRALFATE 1 GM/10 ML UDC GT SCH ×3 (06:54→16:23)
[2023-01-06] MEDS: NORMAL SALINE 5 ML DISP.SYRIN IVF SCH ×2 (06:55→14:10)
[2023-01-06 08:00] VITALS: BP_SYST 153; PULSE 57; RESP 16; TEMP 97.2; O2SAT 96
[2023-01-06 08:10] LABS: BASOPHILS % (AUTO) 0.3 % (0.0-2.0); HEMATOCRIT 31.5 % (36-48); HEMOGLOBIN 9.9 g/dL (12.0-16.0); LYMPHOCYTES # (AUTO) 0.6 K/uL (1.0-5.5); LYMPHOCYTES % (AUTO) 5.9 % (20.5-51.5); MEAN CORPUSCULAR HEMOGLOBIN 28 pg (27-31); MEAN CORPUSCULAR HGB CONC 31 % (32-36); MEAN CORPUSCULAR VOLUME 88 fL (79.0-98.0); MONOCYTES # (AUTO) 0.3 K/uL (0.0-1.0); MONOCYTES % (AUTO) 3.3 % (1.7-9.3); NEUTROPHILS # (AUTO) 8.8 K/uL (1.8-7.7); NEUTROPHILS % (AUTO) 90.5 % (40.0-70.0); PLATELET COUNT (AUTO) 303 K/uL (130-430); RED BLOOD CELL COUNT(AUTO) 3.59 MIL/uL (4.2-6.2); RED CELL DISTRIBUTION WIDTH 14.4 % (9.0-15.0); WHITE BLOOD COUNT (AUTO) 9.7 K/uL (4.8-10.8)
[2023-01-06 08:13] LABS: CALCIUM 8.4 mg/dL (8.4-11.0)
[2023-01-06 08:18] LABS: CREATININE 10.8 mg/dL (0.55-1.30)
[2023-01-06] MEDS: DIGOXIN 0.125 MG TABLET PO SCH (09:00)
[2023-01-06] MEDS: ICOSAPENT ETHYL PO SCH (09:00)
[2023-01-06] MEDS: amLODIPine BESYLATE 10 MG TABLET PO SCH ×2 (09:00→13:03)
[2023-01-06] MEDS: CARVEDILOL 3.125 MG TABLET (COREG) PO SCH (09:00)
[2023-01-06] MEDS: CITALOPRAM HYDROBROMIDE 20 MG TABLET PO SCH (10:28)
[2023-01-06] MEDS: ASPIRIN 81 MG TABLET(ECOTRIN) PO SCH (10:28)
[2023-01-06] MEDS: CALCIUM ACETATE 667 MG CAP PO SCH ×2 (10:28→14:59)
[2023-01-06] MEDS: PANTOPRAZOLE SODIUM 40 MG TAB PO SCH (10:28)
[2023-01-06] MEDS: predniSONE 20 MG TABLET PO SCH (10:28)
--- NOTE | 2023-01-06 10:34 | NUR ---
critical lab received - notified. HD started @1000.
[2023-01-06 12:00] VITALS: BP_SYST 157; PULSE 59; RESP 16; TEMP 96.4; O2SAT 96
[2023-01-06] MEDS ORDERED: SUCR1TAB2 PO (13:10)
--- NOTE | 2023-01-06 13:36 | NUR ---
PATIENT REFUSED PT TREATMENT TODAY STATING SHE IS BEING DISCHARGED TODAY AND DOESN'T FEEL LIKE IT.
--- NOTE | 2023-01-06 15:16 | NUR ---
Nutrition F/U Admitting Diagnosis Sepsis, Renal Failure Reviewed Pertinent Medical/Surgical Hx Medical Record Patient SR VICE PRESIDENT Medical History Comment: Per H&P (01/02/23), patient is a 67 yo female with history of diabetes, hypertension, diabetic nephropathy, hypertensive kidney disease, end-stage renal disease, hyperlipidemia. Patient presents with shortness of breath and she failed to go to dialysis on ; patient is supposed to get dialysis on Tuesdays, , and Saturdays. Per Progress note (01/02/23), current assessment: leukocytosis, sepsis, CKD 5 on HD, R IJ permacath, AV shunt in left arm, HTN, hypoxia, fluid overload, obesity, sleep apnea, metabolic encephalopathy. Critical hyperkalemia, repeat dialysis Subjective Information: RD spoke w/ SR VICE PRESIDENT this morning who stated that pt's was interested in getting Nektar smoothies for pt, however, SR VICE PRESIDENT suggested to try homemade smoothies first to account for pt's kidney function. RD brought renal-friendly smoothie recipes to pt's bedside this afternoon. stated pt is not eating anything while on the pureed diet d/t dislike. He stated he brought [employer] (white rice, teriyaki chicken, and vegetables) yesterday and today, and chopped it up for her, and fed her, and she was able to eat without difficulties. RD advised to be careful as pt was complaining of swallowing difficulties -- acknowledged, and stated pt is being D/C by erika. Per EMR review, pt had HD at 1000 today. Current Diet Order/Nutrition Support: Renal, Pureed x2 days Patient/Significant Other Able To Verbalize Education Provided Indicated Pertinent Medications: protonix, prednisone, phoslo Pertinent Labs: K 5.4 H, Cl 99 L, Na 135 L, BUN 104 H, CRE 10.8 H, eGFR 4 L, Phos 8.5 H (01/02), Mg 2.5 H (01/02) Height (Feet) 5 feet Height (Inches) 3.00 inches Weight (Pounds) 198 pounds (01/02) -- stable wt Patient Weight 89.811 kg Body Mass Index 35.07 kg/m2 Usual Weight 198 lbs %UBW 100 %IBW 172 [place]/Adjusted Body Weight IBW 115 lbs. +/-10%; ABW 142 lbs. r/t obesity Recent Weight Change No Weight Status Obese Gastrointestinal Symptoms Nausea Last BM x1 01/05 Difficulty With: Swallowing Food Allergies Yes - Egg products, egg substitutes, egg white, egg yolks, Lactose Intolerant Usual Diet At Home Low carb diet Skin Integrity Comment: Liam Score: 18; skin intact Edema: BLE and R arn 2+ non-pitting edema noted Current % PO 38% average x5 meal records -- however, pt is also eating outside foods brought by Estimated Energy Expenditure (kcals/day) 7424-7047 kcals/day (30-35 kcals/kg of ABW 65 kg r/t on dialysis) Estimated Protein Required (g/day) 65-98 gm/day (1.0-1.5 gm/kg of ABW 65 kg r/t dialysis) Estimated Fluid Required (l/day) per MD Rx Problem/Etiology/Signs/Symptoms *Altered nutrition-related labs r/t renal/endocrine dysfunction and current medical condition AEB labs (01/02) K, Cl, BUN, CRE, eGFR, Phos, and Mg. *Ongoing *Inadequate protein/energy intake likely r/t poor appetite and altered GI function AEB nausea x2 days and inadequate PO intakes x2 days. *Improving, no N, however, PO intakes still poor *Increased nutrient needs r/t increase demand for nutrient AEB requiring hemodialysis [place], [place]. *Ongoing Expected Outcomes/Goals *PO intake to meet at 75% of estimated nutrient needs without GI complications *Improved/stable nutrition-related lab values *Maintain skin integrity Dietitian Recommendations * Continue Renal, Pureed diet (Nepro TID comes standard w/ current diet; ONS yields 1260 kcal/day, 57 gm protein/day) * Consider F/U ST swallow eval to assess for safety of advancement of diet * Consider daily Nephrovite supplementation Monitor/Evaluation Comment PO intake, GI, skin, labs Follow Up Moderate Risk: F/U in 3-5 days Addendum: 01/06/23 at [address] RD provided high-potassium foods list to pt and yesterday per request.
--- NOTE | 2023-01-06 15:25 | NUR ---
Dietitian Recommendations * Continue Renal, Pureed diet (Nepro TID comes standard w/ current diet; ONS yields 1260 kcal/day, 57 gm protein/day) * Consider F/U ST swallow eval to assess for safety of advancement of diet * Consider daily Nephrovite supplementation LP, MS, RD Please refer to Nutrition F/U for details.
[2023-01-06 16:00] VITALS: BP_SYST 145; PULSE 64; RESP 18; TEMP 97.7; O2SAT 99
[2023-01-06 16:12] VITALS: BP_SYST 145; PULSE 64; RESP 18; TEMP 97.7; O2SAT 99
--- NOTE | 2023-01-06 16:59 | NUR ---
PT A&O, @ BEDSIDE. ON 3L NC. HD COMPLETED @1300. PT TP BE D/C-ED @ 1900 TO HOME W/ . PRNS GIVEN NEEDED. MIDLINE PULLED ON D/C.
[2023-01-06] MEDS ORDERED: amLODIPine BESYLATE 10 MG TABLET PO SCH (21:45)
== END 2023-01-06 16:59 | disposition home or self-care (01) | DRG 871 ==
LOC: SED 19:56 → SIC 21:45 → STU 23:30 → SMU 01-04 13:34
PROVIDERS: ADMIT Preventive Medicine Preventive Medicine/Occupational Environmental Medicine; ATTEND Specialist
PROC: 5A1D70Z Performance of Urinary Filtration, Intermittent, Less than 6 Hours Per Day (ICD-10-PCS; principal; 2023-01-01)
PROC: 5A1D70Z Performance of Urinary Filtration, Intermittent, Less than 6 Hours Per Day (ICD-10-PCS; 2023-01-02)
PROC: 05HY33Z Insertion of Infusion Device into Upper Vein, Percutaneous Approach (ICD-10-PCS; 2023-01-03)
PROC: 5A1D70Z Performance of Urinary Filtration, Intermittent, Less than 6 Hours Per Day (ICD-10-PCS; 2023-01-04)
PROC: 5A1D70Z Performance of Urinary Filtration, Intermittent, Less than 6 Hours Per Day (ICD-10-PCS; 2023-01-06)
DX: A41.9 Sepsis, unspecified organism (principal); J69.0 Pneumonitis due to inhalation of food and vomit; J96.21 Acute and chronic respiratory failure with hypoxia; N18.6 End stage renal disease; E87.0 Hyperosmolality and hypernatremia; N17.9 Acute kidney failure, unspecified; E66.2 Morbid (severe) obesity with alveolar hypoventilation; I13.2 Hypertensive heart and chronic kidney disease with heart failure and with stage 5 chronic kidney disease, or end stage renal disease; J44.1 Chronic obstructive pulmonary disease with (acute) exacerbation; J44.0 Chronic obstructive pulmonary disease with (acute) lower respiratory infection; E87.5 Hyperkalemia; D63.1 Anemia in chronic kidney disease; E78.5 Hyperlipidemia, unspecified; E83.39 Other disorders of phosphorus metabolism; E11.65 Type 2 diabetes mellitus with hyperglycemia; I50.9 Heart failure, unspecified; M94.0 Chondrocostal junction syndrome [Tietze]; E11.22 Type 2 diabetes mellitus with diabetic chronic kidney disease; Z99.2 Dependence on renal dialysis; Z88.0 Allergy status to penicillin; Z91.012 Allergy to eggs; Z79.899 Other long term (current) drug therapy; Z91.158 Patient's noncompliance with renal dialysis for other reason; Z91.148 Patient's other noncompliance with medication regimen for other reason; Z68.35 Body mass index [BMI] 35.0-35.9, adult; Z74.01 Bed confinement status
CPT/HCPCS: 36415; 71045; 78579; 78580-TC; 80048; 80053; 80074; 80162; 80202; 83605; 83735; 83880; 84100; 84484; 85025; 85379; 85651-TC; 87040; 87081; 90935; 90937; 92610-GN; 93306; 94640; 94760; 96374; 96375; 97110-GP; 99291; 99292; A9539; A9540; G0378; J0610; J1644; J1815; J1885; J1940; J2060; J2270; J2405; J3370; J7030; J7050; J7512; J7613; Q0163

== ENCOUNTER 2023-03-05 17:28 | Inpatient (IN) | payer OTHER ==
[~2023-03-05] VITALS: Ht 160 cm; Wt 112.6 kg
[2023-03-05 17:28] VITALS: BP_SYST 150; PULSE 71; RESP 24; TEMP 98.3; O2SAT 100
[~2023-03-05 17:28] MED LIST changes: +SUCR1TAB2 PO
[2023-03-05] MEDS ORDERED: FUROSEMIDE 100 MG/10 ML VIAL IVP ONE (18:00)
[2023-03-05 18:27] LABS: BASOPHILS # (AUTO) 0.2 K/uL (0.0-0.2); BASOPHILS % (AUTO) 1.1 % (0.0-2.0); EOSINOPHILS # (AUTO) 0.2 K/uL (0.0-0.4); HEMATOCRIT 33.1 % (36-48); HEMOGLOBIN 10.1 g/dL (12.0-16.0); LYMPHOCYTES # (AUTO) 0.5 K/uL (1.0-5.5); LYMPHOCYTES % (AUTO) 3.1 % (20.5-51.5); MEAN CORPUSCULAR HEMOGLOBIN 27 pg (27-31); MEAN CORPUSCULAR HGB CONC 30 % (32-36); MEAN CORPUSCULAR VOLUME 90 fL (79.0-98.0); MONOCYTES # (AUTO) 0.9 K/uL (0.0-1.0); MONOCYTES % (AUTO) 5.2 % (1.7-9.3); NEUTROPHILS # (AUTO) 15.6 K/uL (1.8-7.7); NEUTROPHILS % (AUTO) 89.6 % (40.0-70.0); PLATELET COUNT (AUTO) 295 K/uL (130-430); RED BLOOD CELL COUNT(AUTO) 3.68 MIL/uL (4.2-6.2); RED CELL DISTRIBUTION WIDTH 15.4 % (9.0-15.0); WHITE BLOOD COUNT (AUTO) 17.4 K/uL (4.8-10.8)
[2023-03-05 18:50] LABS: ALANINE AMINOTRANSFERASE 14 U/L (12-78); ALBUMIN 3.7 g/dL (3.4-4.8); ANION GAP 12 (5-15); ASPARTATE AMINOTRANSFERASE 15 U/L (10-37); CALCIUM 9.9 mg/dL (8.4-11.0); CARBON DIOXIDE 25 mmol/L (23-29); CHLORIDE 97 mmol/L (98-107); GFR AFRICAN AMERICAN 3 mL/min (>90); GLUCOSE 115 mg/dL (74-106); SODIUM SERUM 134 mmol/L (136-145); TOTAL BILIRUBIN 0.6 mg/dL (0.0-1.0); TOTAL PROTEIN, SERUM 7.5 g/dL (6.4-8.3); UREA NITROGEN, BLOOD 92 mg/dL (8-21)
[2023-03-05 18:53] LABS: GFR NON AFRICAN-AMERICAN 2 mL/min (>90)
[2023-03-05 18:58] LABS: CREATININE 15.56 mg/dL (0.55-1.30); POTASSIUM 6.9 mmol/L (3.5-5.1)
[2023-03-05] MEDS ORDERED: CALCIUM GLUCONATE 1 GM in NS 100 ML IV ONE (19:00)
[2023-03-05] MEDS ORDERED: SODIUM BICARBONATE 8.4% JECT 50 MEQ/50 ML SYRINGE IVP ONE (19:00)
[2023-03-05] MEDS ORDERED: INSULIN REGULAR, HUMAN 10 UNITS/0.1 ML, 3 ML VIAL IVP ONE (19:00)
[2023-03-05] MEDS ORDERED: SODIUM ZIRCONIUM CYCLOSILICATE 10 GM POWD.PACK PO ONE (19:00)
[2023-03-05] MEDS ORDERED: DEXTROSE 50% JECT 50 ML DISP.SYRIN IVP ONE (19:00)
[2023-03-05] MEDS ORDERED: CALCIUM GLUCONATE 1 GM/10 ML VIAL ONE (19:19)
[2023-03-05] MEDS ORDERED: CALCIUM GLUCONATE 2 GM in NS 100 ML IV ONE (20:00)
[2023-03-05] MEDS ORDERED: NITSL SL (20:03)
[2023-03-05] MEDS ORDERED: FOLI0.8T42 PO (20:03)
[2023-03-05] MEDS ORDERED: CHOL200078 (20:03)
[2023-03-05] MEDS ORDERED: ESCI5TAB PO (20:03)
[2023-03-05] MEDS ORDERED: TEMA15CA5 PO (20:03)
[2023-03-06] MEDS ORDERED: NALOXONE HCL 0.4 MG/ML AMP (NARCAN) IVP PRN (03:30)
[2023-03-06] MEDS: HYDROcodone/ACETAMIN 5-325 MG TAB (NORCO/ VICODIN) PO PRN ×3 (03:38→21:20)
[2023-03-06 05:43] VITALS: BP_SYST 129; PULSE 82; O2SAT 92
[2023-03-06] MEDS ORDERED: HYDR-3698 PO (08:25)
[2023-03-06] MEDS ORDERED: DIGOXIN 0.125 MG TABLET PO ONE (10:45)
[2023-03-06 15:34] VITALS: BP_SYST 130; PULSE 78; RESP 20; TEMP 97.9
[2023-03-06 15:48] VITALS: O2SAT 98
[2023-03-06] MEDS ORDERED: NITROGLYCERIN 0.4 MG TAB.SUBL SL PRN (16:30)
[2023-03-06] MEDS ORDERED: VANCOMYCIN HCL 1,000 MG in NS 250 ML IV ONE (18:00)
[2023-03-06] MEDS: CALCIUM ACETATE 667 MG CAP PO SCH (18:07)
[2023-03-06 18:09] VITALS: BP_SYST 110; PULSE 77; RESP 20; TEMP 97.9; O2SAT 98
[2023-03-06 20:30] VITALS: BP_SYST 137; PULSE 79; RESP 20; TEMP 98.3; O2SAT 95
[2023-03-06] MEDS: SIMVASTATIN 10 MG TABLET PO SCH (21:19)
[2023-03-06] MEDS: SUCRALFATE 1 GM TABLET PO SCH (21:19)
[2023-03-06] MEDS: ALPRAZolam 0.25 MG TABLET PO PRN (21:19)
[2023-03-07] VITALS (7 sets, daily range): BP systolic 108–144; PULSE 78–100; RESP 16–20; TEMP 97.4–99.8; O2SAT 93–97
[2023-03-07 04:22] LABS: BASOPHILS % (AUTO) 0.5 % (0.0-2.0); EOSINOPHILS # (AUTO) 0.2 K/uL (0.0-0.4); EOSINOPHILS % (AUTO) 2.1 % (0.0-4.0); HEMATOCRIT 29.5 % (36-48); HEMOGLOBIN 9.2 g/dL (12.0-16.0); LYMPHOCYTES # (AUTO) 0.9 K/uL (1.0-5.5); LYMPHOCYTES % (AUTO) 7.9 % (20.5-51.5); MEAN CORPUSCULAR HEMOGLOBIN 28 pg (27-31); MEAN CORPUSCULAR HGB CONC 31 % (32-36); MEAN CORPUSCULAR VOLUME 89 fL (79.0-98.0); MONOCYTES # (AUTO) 0.7 K/uL (0.0-1.0); MONOCYTES % (AUTO) 6.8 % (1.7-9.3); NEUTROPHILS % (AUTO) 82.7 % (40.0-70.0); PLATELET COUNT (AUTO) 256 K/uL (130-430); RED CELL DISTRIBUTION WIDTH 14.9 % (9.0-15.0); WHITE BLOOD COUNT (AUTO) 10.8 K/uL (4.8-10.8)
[2023-03-07 04:54] LABS: ALBUMIN 2.9 g/dL (3.4-4.8); CALCIUM 8.6 mg/dL (8.4-11.0); POTASSIUM 5.7 mmol/L (3.5-5.1); TOTAL BILIRUBIN 0.6 mg/dL (0.0-1.0); TOTAL PROTEIN, SERUM 6.4 g/dL (6.4-8.3)
[2023-03-07 05:00] LABS: CREATININE 12.78 mg/dL (0.55-1.30)
[2023-03-07] MEDS: CALCIUM ACETATE 667 MG CAP PO SCH ×4 (08:00→18:57)
[2023-03-07] MEDS ORDERED: DIGO125T PO (08:50)
[2023-03-07] MEDS: DIGOXIN 0.125 MG TABLET PO SCH ×2 (09:00→16:21)
[2023-03-07] MEDS ORDERED: DIGOXIN 0.125 MG TABLET PO SCH (09:00)
[2023-03-07] MEDS: amLODIPine BESYLATE 10 MG TABLET PO SCH ×2 (09:00→16:21)
[2023-03-07] MEDS: NEPHROVITE, (FOLIC ACID/VITAMIN B COMP W-C 1 TAB) PO SCH (10:25)
[2023-03-07] MEDS: SUCRALFATE 1 GM TABLET PO SCH ×2 (10:25→22:25)
[2023-03-07] MEDS: ASPIRIN 81 MG TABLET(ECOTRIN) PO SCH (10:25)
[2023-03-07] MEDS: HYDROcodone/ACETAMIN 5-325 MG TAB (NORCO/ VICODIN) PO PRN ×3 (10:32→22:26)
[2023-03-07] MEDS: IPRATROPIUM/ALBUTEROL SULFATE 3 ML AMPUL.NEB (DUONEB) INH SCH ×2 (13:24→19:41)
[2023-03-07] MEDS: ALPRAZolam 0.25 MG TABLET PO PRN (19:01)
[2023-03-07] MEDS ORDERED: CITALOPRAM HYDROBROMIDE 20 MG TABLET PO ONE (20:00)
[2023-03-07] MEDS: SIMVASTATIN 10 MG TABLET PO SCH (22:27)
[2023-03-08] VITALS (13 sets, daily range): BP systolic 94–154; PULSE 73–79; RESP 16–20; TEMP 97–98.6; O2SAT 79–99
[2023-03-08] MEDS: IPRATROPIUM/ALBUTEROL SULFATE 3 ML AMPUL.NEB (DUONEB) INH SCH ×4 (01:00→19:49)
[2023-03-08] MEDS: HYDROcodone/ACETAMIN 5-325 MG TAB (NORCO/ VICODIN) PO PRN ×4 (04:38→22:55)
[2023-03-08] MEDS: ALPRAZolam 0.25 MG TABLET PO PRN ×2 (04:48→12:50)
[2023-03-08 06:39] LABS: BASOPHILS # (AUTO) 0.1 K/uL (0.0-0.2); BASOPHILS % (AUTO) 0.7 % (0.0-2.0); EOSINOPHILS # (AUTO) 0.4 K/uL (0.0-0.4); HEMATOCRIT 29.2 % (36-48); HEMOGLOBIN 9.2 g/dL (12.0-16.0); LYMPHOCYTES # (AUTO) 0.8 K/uL (1.0-5.5); LYMPHOCYTES % (AUTO) 9.1 % (20.5-51.5); MEAN CORPUSCULAR HEMOGLOBIN 28 pg (27-31); MEAN CORPUSCULAR HGB CONC 32 % (32-36); MEAN CORPUSCULAR VOLUME 89 fL (79.0-98.0); MONOCYTES # (AUTO) 0.6 K/uL (0.0-1.0); MONOCYTES % (AUTO) 6.3 % (1.7-9.3); NEUTROPHILS # (AUTO) 7.4 K/uL (1.8-7.7); NEUTROPHILS % (AUTO) 79.9 % (40.0-70.0); PLATELET COUNT (AUTO) 266 K/uL (130-430); RED BLOOD CELL COUNT(AUTO) 3.28 MIL/uL (4.2-6.2); RED CELL DISTRIBUTION WIDTH 14.8 % (9.0-15.0); WHITE BLOOD COUNT (AUTO) 9.2 K/uL (4.8-10.8)
[2023-03-08 07:04] LABS: CALCIUM 8.8 mg/dL (8.4-11.0); POTASSIUM 4.5 mmol/L (3.5-5.1)
[2023-03-08 07:26] LABS: CREATININE 10.04 mg/dL (0.55-1.30)
[2023-03-08] MEDS: CALCIUM ACETATE 667 MG CAP PO SCH ×3 (08:00→17:25)
[2023-03-08] MEDS: ASPIRIN 81 MG TABLET(ECOTRIN) PO SCH (09:57)
[2023-03-08] MEDS: NEPHROVITE, (FOLIC ACID/VITAMIN B COMP W-C 1 TAB) PO SCH (09:57)
[2023-03-08] MEDS: SUCRALFATE 1 GM TABLET PO SCH ×2 (09:57→21:21)
[2023-03-08] MEDS: amLODIPine BESYLATE 10 MG TABLET PO SCH (09:57)
[2023-03-08] MEDS: DIGOXIN 0.125 MG TABLET PO SCH (09:58)
[2023-03-08] MEDS ORDERED: CITALOPRAM HYDROBROMIDE 20 MG TABLET PO ONE (13:30)
[2023-03-08] MEDS: methylPREDNISolone SOD SUCC/PF 62.5 MG/ML VIAL IVP SCH ×2 (16:40→22:29)
[2023-03-08] MEDS: SIMVASTATIN 10 MG TABLET PO SCH (21:21)
[2023-03-08] MEDS: AZTREONAM 1 GM in NS 50 ML IV SCH (22:29)
[2023-03-09] VITALS (10 sets, daily range): BP systolic 100–166; PULSE 66–87; RESP 18; TEMP 96.8–98.4; O2SAT 94–99
[2023-03-09] MEDS: IPRATROPIUM/ALBUTEROL SULFATE 3 ML AMPUL.NEB (DUONEB) INH SCH ×4 (01:17→19:19)
[2023-03-09] MEDS: methylPREDNISolone SOD SUCC/PF 62.5 MG/ML VIAL IVP SCH ×4 (06:17→22:22)
[2023-03-09] MEDS: CITALOPRAM HYDROBROMIDE 20 MG TABLET PO SCH (08:35)
[2023-03-09] MEDS: DIGOXIN 0.125 MG TABLET PO SCH (08:38)
[2023-03-09] MEDS: NEPHROVITE, (FOLIC ACID/VITAMIN B COMP W-C 1 TAB) PO SCH (08:39)
[2023-03-09] MEDS: SUCRALFATE 1 GM TABLET PO SCH ×2 (08:40→20:16)
[2023-03-09] MEDS: HYDROcodone/ACETAMIN 5-325 MG TAB (NORCO/ VICODIN) PO PRN ×3 (08:40→22:09)
[2023-03-09] MEDS: CALCIUM ACETATE 667 MG CAP PO SCH ×3 (08:40→15:25)
[2023-03-09] MEDS: ASPIRIN 81 MG TABLET(ECOTRIN) PO SCH (08:41)
[2023-03-09] MEDS: amLODIPine BESYLATE 10 MG TABLET PO SCH (08:41)
[2023-03-09] MEDS: AZTREONAM 1 GM in NS 50 ML IV SCH ×2 (08:45→22:16)
[2023-03-09] MEDS: ALPRAZolam 0.25 MG TABLET PO PRN (17:26)
[2023-03-09] MEDS: SIMVASTATIN 10 MG TABLET PO SCH (20:17)
[2023-03-10] VITALS (10 sets, daily range): BP systolic 113–159; PULSE 70–75; RESP 17–20; TEMP 97.4–98.9; O2SAT 92–100
[2023-03-10] MEDS: IPRATROPIUM/ALBUTEROL SULFATE 3 ML AMPUL.NEB (DUONEB) INH SCH ×4 (01:04→19:45)
[2023-03-10] MEDS: methylPREDNISolone SOD SUCC/PF 62.5 MG/ML VIAL IVP SCH ×4 (05:39→23:29)
[2023-03-10] MEDS: NEPHROVITE, (FOLIC ACID/VITAMIN B COMP W-C 1 TAB) PO SCH (08:54)
[2023-03-10] MEDS: ASPIRIN 81 MG TABLET(ECOTRIN) PO SCH (08:54)
[2023-03-10] MEDS: CITALOPRAM HYDROBROMIDE 20 MG TABLET PO SCH (08:54)
[2023-03-10] MEDS: SUCRALFATE 1 GM TABLET PO SCH ×2 (08:54→20:41)
[2023-03-10] MEDS: DIGOXIN 0.125 MG TABLET PO SCH (08:55)
[2023-03-10] MEDS: amLODIPine BESYLATE 10 MG TABLET PO SCH (08:55)
[2023-03-10] MEDS: CALCIUM ACETATE 667 MG CAP PO SCH ×3 (08:58→17:01)
[2023-03-10] MEDS: HYDROcodone/ACETAMIN 5-325 MG TAB (NORCO/ VICODIN) PO PRN ×2 (08:59→16:58)
[2023-03-10] MEDS: AZTREONAM 1 GM in NS 50 ML IV SCH ×2 (09:59→22:31)
[2023-03-10] MEDS: ALPRAZolam 0.25 MG TABLET PO PRN (14:44)
[2023-03-10] MEDS: SIMVASTATIN 10 MG TABLET PO SCH (20:41)
[2023-03-10] MEDS: BENZOCAINE 20% 0.5mL UD SPRAY MM PRN (20:46)
[2023-03-11] VITALS (9 sets, daily range): BP systolic 115–152; PULSE 68–75; RESP 17–20; TEMP 97.6–98; O2SAT 86–98
[2023-03-11] MEDS: ALPRAZolam 0.25 MG TABLET PO PRN ×2 (00:30→14:37)
[2023-03-11] MEDS: HYDROcodone/ACETAMIN 5-325 MG TAB (NORCO/ VICODIN) PO PRN ×3 (00:30→20:43)
[2023-03-11 06:21] LABS: BASOPHILS % (AUTO) 0.1 % (0.0-2.0); EOSINOPHILS % (AUTO) 0.1 % (0.0-4.0); HEMATOCRIT 29.9 % (36-48); HEMOGLOBIN 9.2 g/dL (12.0-16.0); LYMPHOCYTES # (AUTO) 1.4 K/uL (1.0-5.5); LYMPHOCYTES % (AUTO) 7.6 % (20.5-51.5); MEAN CORPUSCULAR HEMOGLOBIN 27 pg (27-31); MEAN CORPUSCULAR HGB CONC 31 % (32-36); MEAN CORPUSCULAR VOLUME 89 fL (79.0-98.0); MONOCYTES % (AUTO) 5.3 % (1.7-9.3); NEUTROPHILS # (AUTO) 15.6 K/uL (1.8-7.7); NEUTROPHILS % (AUTO) 86.9 % (40.0-70.0); PLATELET COUNT (AUTO) 363 K/uL (130-430); RED BLOOD CELL COUNT(AUTO) 3.36 MIL/uL (4.2-6.2); RED CELL DISTRIBUTION WIDTH 14.7 % (9.0-15.0)
[2023-03-11 06:41] LABS: CALCIUM 8.6 mg/dL (8.4-11.0)
[2023-03-11 06:46] LABS: CREATININE 10.4 mg/dL (0.55-1.30); POTASSIUM 6.4 mmol/L (3.5-5.1)
[2023-03-11] MEDS: IPRATROPIUM/ALBUTEROL SULFATE 3 ML AMPUL.NEB (DUONEB) INH SCH ×3 (07:10→20:15)
[2023-03-11] MEDS: CITALOPRAM HYDROBROMIDE 20 MG TABLET PO SCH (09:39)
[2023-03-11] MEDS: ASPIRIN 81 MG TABLET(ECOTRIN) PO SCH (09:39)
[2023-03-11] MEDS: SUCRALFATE 1 GM TABLET PO SCH ×2 (09:39→20:43)
[2023-03-11] MEDS: NEPHROVITE, (FOLIC ACID/VITAMIN B COMP W-C 1 TAB) PO SCH (09:39)
[2023-03-11] MEDS: amLODIPine BESYLATE 10 MG TABLET PO SCH (09:40)
[2023-03-11] MEDS: CALCIUM ACETATE 667 MG CAP PO SCH ×4 (09:40→20:42)
[2023-03-11] MEDS: DIGOXIN 0.125 MG TABLET PO SCH (09:41)
[2023-03-11] MEDS: AZTREONAM 1 GM in NS 50 ML IV SCH ×2 (10:32→21:00)
[2023-03-11 10:53] LABS: BASOPHILS # (AUTO) 0.1 K/uL (0.0-0.2); BASOPHILS % (AUTO) 0.3 % (0.0-2.0); EOSINOPHILS % (AUTO) 0.3 % (0.0-4.0); HEMATOCRIT 28.4 % (36-48); HEMOGLOBIN 8.9 g/dL (12.0-16.0); LYMPHOCYTES # (AUTO) 1.3 K/uL (1.0-5.5); LYMPHOCYTES % (AUTO) 8.4 % (20.5-51.5); MEAN CORPUSCULAR HEMOGLOBIN 28 pg (27-31); MEAN CORPUSCULAR HGB CONC 31 % (32-36); MEAN CORPUSCULAR VOLUME 88 fL (79.0-98.0); MONOCYTES # (AUTO) 0.8 K/uL (0.0-1.0); MONOCYTES % (AUTO) 4.8 % (1.7-9.3); NEUTROPHILS # (AUTO) 13.7 K/uL (1.8-7.7); NEUTROPHILS % (AUTO) 86.2 % (40.0-70.0); PLATELET COUNT (AUTO) 364 K/uL (130-430); RED BLOOD CELL COUNT(AUTO) 3.22 MIL/uL (4.2-6.2); RED CELL DISTRIBUTION WIDTH 14.8 % (9.0-15.0); WHITE BLOOD COUNT (AUTO) 15.9 K/uL (4.8-10.8)
[2023-03-11] MEDS ORDERED: VANCOMYCIN HCL 1,000 MG in NS 250 ML IV ONE (11:00)
[2023-03-11] MEDS: BENZOCAINE 20% 0.5mL UD SPRAY MM PRN (14:32)
[2023-03-11] MEDS: SIMVASTATIN 10 MG TABLET PO SCH (20:43)
[2023-03-12] VITALS (8 sets, daily range): BP systolic 115–136; PULSE 64–75; RESP 17–20; TEMP 97.6–98.1; O2SAT 94–98
[2023-03-12] MEDS: IPRATROPIUM/ALBUTEROL SULFATE 3 ML AMPUL.NEB (DUONEB) INH SCH ×3 (01:00→13:37)
[2023-03-12 07:21] LABS: BASOPHILS % (AUTO) 0.3 % (0.0-2.0); EOSINOPHILS # (AUTO) 0.3 K/uL (0.0-0.4); EOSINOPHILS % (AUTO) 2.9 % (0.0-4.0); HEMATOCRIT 30.1 % (36-48); HEMOGLOBIN 9.4 g/dL (12.0-16.0); LYMPHOCYTES # (AUTO) 1.6 K/uL (1.0-5.5); LYMPHOCYTES % (AUTO) 13.3 % (20.5-51.5); MEAN CORPUSCULAR HEMOGLOBIN 28 pg (27-31); MEAN CORPUSCULAR HGB CONC 31 % (32-36); MEAN CORPUSCULAR VOLUME 88 fL (79.0-98.0); MONOCYTES # (AUTO) 0.8 K/uL (0.0-1.0); MONOCYTES % (AUTO) 6.5 % (1.7-9.3); NEUTROPHILS # (AUTO) 9.1 K/uL (1.8-7.7); PLATELET COUNT (AUTO) 365 K/uL (130-430); RED BLOOD CELL COUNT(AUTO) 3.42 MIL/uL (4.2-6.2); RED CELL DISTRIBUTION WIDTH 14.9 % (9.0-15.0)
[2023-03-12 07:38] LABS: CALCIUM 8.4 mg/dL (8.4-11.0); POTASSIUM 5.1 mmol/L (3.5-5.1)
[2023-03-12 07:41] LABS: WHITE BLOOD COUNT (AUTO) 11.9 K/uL (4.8-10.8)
[2023-03-12 07:46] LABS: CREATININE 8.06 mg/dL (0.55-1.30)
[2023-03-12] MEDS ORDERED: LEVO250T73 PO (08:48)
[2023-03-12] MEDS: HYDROcodone/ACETAMIN 5-325 MG TAB (NORCO/ VICODIN) PO PRN ×2 (09:11→13:45)
[2023-03-12] MEDS: SUCRALFATE 1 GM TABLET PO SCH (09:14)
[2023-03-12] MEDS: DIGOXIN 0.125 MG TABLET PO SCH (09:15)
[2023-03-12] MEDS: CITALOPRAM HYDROBROMIDE 20 MG TABLET PO SCH (09:15)
[2023-03-12] MEDS: CALCIUM ACETATE 667 MG CAP PO SCH ×2 (09:15→13:38)
[2023-03-12] MEDS: ASPIRIN 81 MG TABLET(ECOTRIN) PO SCH (09:16)
[2023-03-12] MEDS: NEPHROVITE, (FOLIC ACID/VITAMIN B COMP W-C 1 TAB) PO SCH (09:16)
[2023-03-12] MEDS: ALPRAZolam 0.25 MG TABLET PO PRN (09:16)
[2023-03-12] MEDS: amLODIPine BESYLATE 10 MG TABLET PO SCH (09:16)
[2023-03-12] MEDS: AZTREONAM 1 GM in NS 50 ML IV SCH (09:47)
[2023-03-12] MEDS: BENZOCAINE 20% 0.5mL UD SPRAY MM PRN (13:45)
== END 2023-03-12 14:36 | disposition home or self-care (01) | DRG 193 ==
LOC: SED 17:28 → SIC 19:50 → STU 03-06 11:20 → SMU 03-06 19:15
PROVIDERS: ADMIT Specialist; ATTEND Specialist
PROC: 5A1D70Z Performance of Urinary Filtration, Intermittent, Less than 6 Hours Per Day (ICD-10-PCS; principal; 2023-03-07)
PROC: 5A1D70Z Performance of Urinary Filtration, Intermittent, Less than 6 Hours Per Day (ICD-10-PCS; 2023-03-08)
PROC: 5A1D70Z Performance of Urinary Filtration, Intermittent, Less than 6 Hours Per Day (ICD-10-PCS; 2023-03-09)
PROC: 5A1D70Z Performance of Urinary Filtration, Intermittent, Less than 6 Hours Per Day (ICD-10-PCS; 2023-03-11)
DX: J18.9 Pneumonia, unspecified organism (principal); J96.20 Acute and chronic respiratory failure, unspecified whether with hypoxia or hypercapnia; N18.6 End stage renal disease; R65.11 Systemic inflammatory response syndrome (SIRS) of non-infectious origin with acute organ dysfunction; I42.9 Cardiomyopathy, unspecified; I13.2 Hypertensive heart and chronic kidney disease with heart failure and with stage 5 chronic kidney disease, or end stage renal disease; E87.5 Hyperkalemia; E66.01 Morbid (severe) obesity due to excess calories; I25.10 Atherosclerotic heart disease of native coronary artery without angina pectoris; D72.829 Elevated white blood cell count, unspecified; I50.9 Heart failure, unspecified; Z88.0 Allergy status to penicillin; Z91.012 Allergy to eggs; Z79.899 Other long term (current) drug therapy; Z99.2 Dependence on renal dialysis; Z91.199 Patient's noncompliance with other medical treatment and regimen due to unspecified reason
CPT/HCPCS: 36415; 71045; 80048; 80053; 83880; 84132; 84484; 85025; 87040; 87081; 90935; 90937; 93005; 94640; 94760; 96365; 96375; 99291; J0610; J1815; J1940; J2930; J3370; J3490; J7030; J7050

== ENCOUNTER 2023-05-27 14:11 | Inpatient (IN) | payer OTHER ==
[~2023-05-27] VITALS: Ht 160 cm; Wt 95.7 kg
[~2023-05-27 14:11] MED LIST changes: +CHOL200078; +ESCI5TAB PO; +FOLI0.8T42 PO; +HYDR-3698 PO; -HYDR-500 PO; +LEVO250T73 PO; +NITSL SL; +TEMA15CA5 PO
[2023-05-27 14:15] VITALS: BP_SYST 152; PULSE 89; RESP 24; TEMP 97.8; O2SAT 86
[2023-05-27] MEDS ORDERED: FUROSEMIDE 40 MG/4 ML VIAL IVP ONE (14:45)
[2023-05-27] MEDS ORDERED: MULT-976 PO (14:49)
[2023-05-27] MEDS ORDERED: NITSL SL (14:49)
[2023-05-27] MEDS ORDERED: ALPR0.5T8 PO (14:49)
[2023-05-27] MEDS ORDERED: FAMO20TA8 PO (14:49)
[2023-05-27] MEDS ORDERED: PSYL1PAC8 PO (14:49)
[2023-05-27] MEDS ORDERED: VANCOMYCIN HCL 1.25 GM/NS 250 ML IV ONE (15:15)
[2023-05-27] MEDS ORDERED: NITROGLYCERIN 0.4 MG TAB.SUBL SL ONE (15:15)
[2023-05-27] MEDS ORDERED: CEFEPIME 2 GM in D5W 100 ML IV ONE (15:15)
[2023-05-27] MEDS ORDERED: CEFEPIME 2 GM/VIAL (MAXIPIME) ONE (15:27)
[2023-05-27] MEDS ORDERED: ONDANSETRON HCL 4 MG/2 ML VIAL IVP ONE (15:30)
[2023-05-27 15:53] LABS: BASOPHILS % (AUTO) 0.3 % (0.0-2.0); EOSINOPHILS # (AUTO) 0.1 K/uL (0.0-0.4); HEMATOCRIT 25.8 % (36-48); HEMOGLOBIN 8.2 g/dL (12.0-16.0); LYMPHOCYTES # (AUTO) 0.5 K/uL (1.0-5.5); LYMPHOCYTES % (AUTO) 4.4 % (20.5-51.5); MEAN CORPUSCULAR HEMOGLOBIN 27 pg (27-31); MEAN CORPUSCULAR HGB CONC 32 % (32-36); MEAN CORPUSCULAR VOLUME 85 fL (79.0-98.0); MONOCYTES # (AUTO) 0.3 K/uL (0.0-1.0); MONOCYTES % (AUTO) 2.9 % (1.7-9.3); NEUTROPHILS # (AUTO) 10.6 K/uL (1.8-7.7); NEUTROPHILS % (AUTO) 91.4 % (40.0-70.0); PLATELET COUNT (AUTO) 282 K/uL (130-430); RED BLOOD CELL COUNT(AUTO) 3.05 MIL/uL (4.2-6.2); RED CELL DISTRIBUTION WIDTH 15.7 % (9.0-15.0); WHITE BLOOD COUNT (AUTO) 11.6 K/uL (4.8-10.8)
[2023-05-27 16:03] LABS: PROTHROMBIN TIME 10.5 SECS (9.5-12.5)
[2023-05-27 16:10] LABS: ALANINE AMINOTRANSFERASE 18 U/L (12-78); ALBUMIN 3.5 g/dL (3.4-4.8); ANION GAP 22 (5-15); ASPARTATE AMINOTRANSFERASE 17 U/L (10-37); BILIRUBIN,DIRECT 0.2 mg/dL (0.0-0.3); CALCIUM 9.7 mg/dL (8.4-11.0); CARBON DIOXIDE 19 mmol/L (23-29); CHLORIDE 90 mmol/L (98-107); GFR AFRICAN AMERICAN 2 mL/min (>90); GFR NON AFRICAN-AMERICAN 2 mL/min (>90); GLUCOSE 144 mg/dL (74-106); PHOSPHORUS 12.7 mg/dL (2.7-4.5); POTASSIUM 5.5 mmol/L (3.5-5.1); SODIUM SERUM 131 mmol/L (136-145); TOTAL BILIRUBIN 0.4 mg/dL (0.0-1.0); TOTAL PROTEIN, SERUM 7.6 g/dL (6.4-8.3)
[2023-05-27 16:12] LABS: CREATININE 20.53 mg/dL (0.55-1.30); UREA NITROGEN, BLOOD 172 mg/dL (8-21)
[2023-05-27 16:33] LABS: INFLUENZA TYPE A Negative (NEGATIVE); INFLUENZA TYPE B NEGATIVE (NEGATIVE)
[2023-05-27] MEDS ORDERED: LORazepam 2 MG/ML VIAL IVP ONE (16:45)
[2023-05-27] MEDS ORDERED: ACETAMINOPHEN 325 MG TABLET PO PRN (17:00)
[2023-05-27] MEDS ORDERED: amLODIPine BESYLATE 10 MG TABLET PO ONE (17:00)
[2023-05-27] MEDS ORDERED: HYDROcodone/ACETAMIN 5-325 MG TAB (NORCO/ VICODIN) PO PRN (17:00)
[2023-05-27] MEDS ORDERED: LEVOFLOXACIN 250 MG/D5W 50 ML IV SCH (19:00)
[2023-05-28] MEDS: ACETAMINOPHEN 325 MG TABLET PO PRN (01:58)
[2023-05-28] MEDS: amLODIPine BESYLATE 10 MG TABLET PO SCH (08:04)
[2023-05-28 08:25] LABS: BASOPHILS % (AUTO) 0.6 % (0.0-2.0); EOSINOPHILS # (AUTO) 0.3 K/uL (0.0-0.4); EOSINOPHILS % (AUTO) 3.5 % (0.0-4.0); HEMATOCRIT 24.3 % (36-48); HEMOGLOBIN 7.7 g/dL (12.0-16.0); LYMPHOCYTES # (AUTO) 0.6 K/uL (1.0-5.5); LYMPHOCYTES % (AUTO) 8.3 % (20.5-51.5); MEAN CORPUSCULAR HEMOGLOBIN 27 pg (27-31); MEAN CORPUSCULAR HGB CONC 32 % (32-36); MEAN CORPUSCULAR VOLUME 84 fL (79.0-98.0); MONOCYTES # (AUTO) 0.5 K/uL (0.0-1.0); NEUTROPHILS # (AUTO) 6.3 K/uL (1.8-7.7); NEUTROPHILS % (AUTO) 80.6 % (40.0-70.0); PLATELET COUNT (AUTO) 256 K/uL (130-430); RED BLOOD CELL COUNT(AUTO) 2.89 MIL/uL (4.2-6.2); RED CELL DISTRIBUTION WIDTH 15.6 % (9.0-15.0); WHITE BLOOD COUNT (AUTO) 7.8 K/uL (4.8-10.8)
[2023-05-28 08:49] LABS: ALBUMIN 3.2 g/dL (3.4-4.8); PHOSPHORUS 10.2 mg/dL (2.7-4.5); POTASSIUM 4.4 mmol/L (3.5-5.1); TOTAL BILIRUBIN 0.4 mg/dL (0.0-1.0); TOTAL PROTEIN, SERUM 6.8 g/dL (6.4-8.3)
[2023-05-28 08:52] VITALS: BP_SYST 149; PULSE 73; O2SAT 92
[2023-05-28 09:15] LABS: CREATININE 14.78 mg/dL (0.55-1.30)
[2023-05-28] MEDS ORDERED: MORPHINE 2 MG/ML INJ. SYRINGE ONE ×2 (09:57→14:14)
[2023-05-28] MEDS: MORPHINE 2 MG/ML INJ. SYRINGE IVP PRN ×2 (10:02→14:16)
[2023-05-28 16:42] VITALS: BP_SYST 145; PULSE 81; RESP 18; TEMP 98; O2SAT 94
[2023-05-28] MEDS: SEVELAMER CARBONATE 800 MG TABLET PO SCH ×2 (18:07→18:10)
[2023-05-28 19:00] VITALS: BP_SYST 145; PULSE 75; RESP 16; TEMP 99; O2SAT 96
[2023-05-28 20:00] VITALS: BP_SYST 145; PULSE 75; RESP 16; TEMP 99; O2SAT 96
[2023-05-28] MEDS: HYDROcodone/ACETAMIN 5-325 MG TAB (NORCO/ VICODIN) PO PRN (23:45)
[2023-05-29] VITALS: BP_SYST 143; PULSE 74; RESP 16; TEMP 99.2; O2SAT 96
[2023-05-29] MEDS: ONDANSETRON HCL 4 MG/2 ML VIAL IVP PRN ×2 (01:03→11:09)
[2023-05-29] MEDS: HYDROcodone/ACETAMIN 5-325 MG TAB (NORCO/ VICODIN) PO PRN ×3 (06:27→21:47)
[2023-05-29 07:10] LABS: ALBUMIN 3.5 g/dL (3.4-4.8); CALCIUM 8.9 mg/dL (8.4-11.0); POTASSIUM 4.3 mmol/L (3.5-5.1); TOTAL BILIRUBIN 0.5 mg/dL (0.0-1.0); TOTAL PROTEIN, SERUM 7.4 g/dL (6.4-8.3)
[2023-05-29 07:17] LABS: CREATININE 9.45 mg/dL (0.55-1.30)
[2023-05-29 07:18] LABS: PHOSPHORUS 6.5 mg/dL (2.7-4.5)
[2023-05-29 07:43] LABS: BASOPHILS % (AUTO) 0.5 % (0.0-2.0); EOSINOPHILS # (AUTO) 0.3 K/uL (0.0-0.4); EOSINOPHILS % (AUTO) 3.7 % (0.0-4.0); HEMATOCRIT 25.6 % (36-48); HEMOGLOBIN 8.2 g/dL (12.0-16.0); LYMPHOCYTES # (AUTO) 0.7 K/uL (1.0-5.5); LYMPHOCYTES % (AUTO) 8.5 % (20.5-51.5); MEAN CORPUSCULAR HEMOGLOBIN 27 pg (27-31); MEAN CORPUSCULAR HGB CONC 32 % (32-36); MEAN CORPUSCULAR VOLUME 84 fL (79.0-98.0); MONOCYTES # (AUTO) 0.6 K/uL (0.0-1.0); MONOCYTES % (AUTO) 6.6 % (1.7-9.3); NEUTROPHILS # (AUTO) 6.8 K/uL (1.8-7.7); NEUTROPHILS % (AUTO) 80.7 % (40.0-70.0); PLATELET COUNT (AUTO) 288 K/uL (130-430); RED BLOOD CELL COUNT(AUTO) 3.03 MIL/uL (4.2-6.2); RED CELL DISTRIBUTION WIDTH 15.4 % (9.0-15.0); WHITE BLOOD COUNT (AUTO) 8.4 K/uL (4.8-10.8)
[2023-05-29 08:00] VITALS: BP_SYST 188; PULSE 77; RESP 20; TEMP 97.9; O2SAT 3; O2SAT 98
[2023-05-29] MEDS: NEPHROVITE, (FOLIC ACID/VITAMIN B COMP W-C 1 TAB) PO SCH (09:09)
[2023-05-29] MEDS: SEVELAMER CARBONATE 800 MG TABLET PO SCH ×3 (09:10→17:07)
[2023-05-29] MEDS: amLODIPine BESYLATE 10 MG TABLET PO SCH (09:10)
[2023-05-29] MEDS ORDERED: hydrALAZINE HCL 20 MG/ML VIAL IVP PRN (09:45)
[2023-05-29 11:30] VITALS: BP_SYST 100; PULSE 75; RESP 19; TEMP 98.4; O2SAT 98
[2023-05-29 16:48] VITALS: BP_SYST 149; PULSE 75; RESP 17; TEMP 98.2; O2SAT 97
[2023-05-29] MEDS: EPOETIN ALFA-EPBX 4,000 UNITS/ML VIAL SUBCUT SCH (17:02)
[2023-05-29 20:00] VITALS: BP_SYST 137; PULSE 75; RESP 18; TEMP 98.5; O2SAT 96
[2023-05-29 22:00] VITALS: O2SAT 95
[2023-05-30] VITALS (7 sets, daily range): BP systolic 131–166; PULSE 72–76; RESP 18–20; TEMP 97.3–98.8; O2SAT 95–98
[2023-05-30 06:36] LABS: BASOPHILS # (AUTO) 0.1 K/uL (0.0-0.2); BASOPHILS % (AUTO) 0.9 % (0.0-2.0); EOSINOPHILS # (AUTO) 0.5 K/uL (0.0-0.4); EOSINOPHILS % (AUTO) 5.6 % (0.0-4.0); HEMATOCRIT 25.5 % (36-48); LYMPHOCYTES # (AUTO) 0.9 K/uL (1.0-5.5); LYMPHOCYTES % (AUTO) 11.1 % (20.5-51.5); MEAN CORPUSCULAR HEMOGLOBIN 27 pg (27-31); MEAN CORPUSCULAR HGB CONC 31 % (32-36); MEAN CORPUSCULAR VOLUME 85 fL (79.0-98.0); MONOCYTES # (AUTO) 0.6 K/uL (0.0-1.0); MONOCYTES % (AUTO) 7.4 % (1.7-9.3); NEUTROPHILS # (AUTO) 6.4 K/uL (1.8-7.7); PLATELET COUNT (AUTO) 286 K/uL (130-430); RED BLOOD CELL COUNT(AUTO) 2.99 MIL/uL (4.2-6.2); RED CELL DISTRIBUTION WIDTH 15.1 % (9.0-15.0); WHITE BLOOD COUNT (AUTO) 8.5 K/uL (4.8-10.8)
[2023-05-30 07:02] LABS: ERYTHROCYTE SEDIMENTATION RATE 52 MM/HR (0-20)
[2023-05-30 07:55] LABS: CALCIUM 10.1 mg/dL (8.4-11.0); PHOSPHORUS 8.6 mg/dL (2.7-4.5); POTASSIUM 4.7 mmol/L (3.5-5.1)
[2023-05-30 08:00] LABS: CREATININE 11.39 mg/dL (0.55-1.30)
[2023-05-30] MEDS: ASPIRIN 81 MG TABLET(ECOTRIN) PO SCH (09:16)
[2023-05-30] MEDS: SEVELAMER CARBONATE 800 MG TABLET PO SCH ×3 (09:16→19:53)
[2023-05-30] MEDS: amLODIPine BESYLATE 10 MG TABLET PO SCH (09:17)
[2023-05-30] MEDS: NEPHROVITE, (FOLIC ACID/VITAMIN B COMP W-C 1 TAB) PO SCH (09:17)
[2023-05-30] MEDS: ATORVASTATIN 20 MG TABLET PO SCH (09:17)
[2023-05-30] MEDS: HYDROcodone/ACETAMIN 5-325 MG TAB (NORCO/ VICODIN) PO PRN ×3 (09:31→19:53)
[2023-05-30] MEDS: LEVOFLOXACIN 250 MG/D5W 50 ML IV SCH (20:44)
[2023-05-31] VITALS (7 sets, daily range): BP systolic 90–166; PULSE 72–88; RESP 16–20; TEMP 97.7–99.1; O2SAT 92–100
[2023-05-31] MEDS: HYDROcodone/ACETAMIN 5-325 MG TAB (NORCO/ VICODIN) PO PRN ×5 (04:10→22:19)
[2023-05-31 06:46] LABS: BASOPHILS # (AUTO) 0.1 K/uL (0.0-0.2); BASOPHILS % (AUTO) 0.7 % (0.0-2.0); EOSINOPHILS # (AUTO) 0.4 K/uL (0.0-0.4); EOSINOPHILS % (AUTO) 4.7 % (0.0-4.0); HEMATOCRIT 27.2 % (36-48); HEMOGLOBIN 8.7 g/dL (12.0-16.0); LYMPHOCYTES # (AUTO) 0.8 K/uL (1.0-5.5); LYMPHOCYTES % (AUTO) 8.7 % (20.5-51.5); MEAN CORPUSCULAR HEMOGLOBIN 27 pg (27-31); MEAN CORPUSCULAR HGB CONC 32 % (32-36); MEAN CORPUSCULAR VOLUME 85 fL (79.0-98.0); MONOCYTES # (AUTO) 0.5 K/uL (0.0-1.0); MONOCYTES % (AUTO) 5.9 % (1.7-9.3); NEUTROPHILS # (AUTO) 6.9 K/uL (1.8-7.7); PLATELET COUNT (AUTO) 315 K/uL (130-430); RED BLOOD CELL COUNT(AUTO) 3.21 MIL/uL (4.2-6.2); RED CELL DISTRIBUTION WIDTH 14.9 % (9.0-15.0); WHITE BLOOD COUNT (AUTO) 8.7 K/uL (4.8-10.8)
[2023-05-31 07:22] LABS: CALCIUM 9.9 mg/dL (8.4-11.0); PHOSPHORUS 6.8 mg/dL (2.7-4.5); POTASSIUM 4.8 mmol/L (3.5-5.1)
[2023-05-31 07:41] LABS: CREATININE 9.59 mg/dL (0.55-1.30)
[2023-05-31] MEDS: SEVELAMER CARBONATE 800 MG TABLET PO SCH ×3 (08:34→17:21)
[2023-05-31] MEDS: amLODIPine BESYLATE 10 MG TABLET PO SCH (08:35)
[2023-05-31] MEDS: ASPIRIN 81 MG TABLET(ECOTRIN) PO SCH (08:35)
[2023-05-31] MEDS: NEPHROVITE, (FOLIC ACID/VITAMIN B COMP W-C 1 TAB) PO SCH (08:35)
[2023-05-31] MEDS: ATORVASTATIN 20 MG TABLET PO SCH (08:35)
[2023-05-31 11:33] LABS: ERYTHROCYTE SEDIMENTATION RATE 66 MM/HR (0-20)
[2023-05-31] MEDS: EPOETIN ALFA-EPBX 4,000 UNITS/ML VIAL SUBCUT SCH (17:21)
[2023-06-01] VITALS: BP_SYST 158; PULSE 74; RESP 18; TEMP 98.9; O2SAT 99
[2023-06-01] MEDS: HYDROcodone/ACETAMIN 5-325 MG TAB (NORCO/ VICODIN) PO PRN ×3 (05:09→21:22)
[2023-06-01 06:28] LABS: BASOPHILS # (AUTO) 0.1 K/uL (0.0-0.2); BASOPHILS % (AUTO) 1.1 % (0.0-2.0); EOSINOPHILS # (AUTO) 0.5 K/uL (0.0-0.4); EOSINOPHILS % (AUTO) 5.2 % (0.0-4.0); HEMATOCRIT 26.8 % (36-48); HEMOGLOBIN 8.5 g/dL (12.0-16.0); LYMPHOCYTES # (AUTO) 1.1 K/uL (1.0-5.5); LYMPHOCYTES % (AUTO) 11.6 % (20.5-51.5); MEAN CORPUSCULAR HEMOGLOBIN 27 pg (27-31); MEAN CORPUSCULAR HGB CONC 32 % (32-36); MEAN CORPUSCULAR VOLUME 84 fL (79.0-98.0); MONOCYTES # (AUTO) 0.6 K/uL (0.0-1.0); MONOCYTES % (AUTO) 6.1 % (1.7-9.3); NEUTROPHILS # (AUTO) 7.2 K/uL (1.8-7.7); PLATELET COUNT (AUTO) 326 K/uL (130-430); RED BLOOD CELL COUNT(AUTO) 3.19 MIL/uL (4.2-6.2); RED CELL DISTRIBUTION WIDTH 14.5 % (9.0-15.0); WHITE BLOOD COUNT (AUTO) 9.5 K/uL (4.8-10.8)
[2023-06-01 06:44] LABS: CALCIUM 10.2 mg/dL (8.4-11.0); PHOSPHORUS 8.3 mg/dL (2.7-4.5); POTASSIUM 4.8 mmol/L (3.5-5.1)
[2023-06-01 06:56] LABS: CREATININE 11.59 mg/dL (0.55-1.30)
[2023-06-01 08:00] VITALS: BP_SYST 142; PULSE 78; RESP 17; TEMP 98.1; O2SAT 98
[2023-06-01 08:00] LABS: ERYTHROCYTE SEDIMENTATION RATE 66 MM/HR (0-20)
[2023-06-01] MEDS: SEVELAMER CARBONATE 800 MG TABLET PO SCH ×3 (08:00→15:41)
[2023-06-01] MEDS: amLODIPine BESYLATE 10 MG TABLET PO SCH ×2 (09:00→15:41)
[2023-06-01] MEDS: ATORVASTATIN 20 MG TABLET PO SCH ×2 (09:00→15:40)
[2023-06-01] MEDS: NEPHROVITE, (FOLIC ACID/VITAMIN B COMP W-C 1 TAB) PO SCH ×2 (09:00→15:40)
[2023-06-01 11:11] VITALS: BP_SYST 148; PULSE 80; RESP 16; TEMP 96.7; O2SAT 93
[2023-06-01 20:00] VITALS: BP_SYST 146; PULSE 79; RESP 18; TEMP 97.8; O2SAT 98
[2023-06-01] MEDS: LEVOFLOXACIN 250 MG/D5W 50 ML IV SCH (21:22)
[2023-06-02 01:08] VITALS: BP_SYST 137; PULSE 76; RESP 18; TEMP 97.4; O2SAT 99
[2023-06-02 06:20] LABS: BASOPHILS # (AUTO) 0.1 K/uL (0.0-0.2); BASOPHILS % (AUTO) 0.9 % (0.0-2.0); EOSINOPHILS # (AUTO) 0.3 K/uL (0.0-0.4); EOSINOPHILS % (AUTO) 3.6 % (0.0-4.0); HEMATOCRIT 27.4 % (36-48); HEMOGLOBIN 8.6 g/dL (12.0-16.0); LYMPHOCYTES # (AUTO) 0.9 K/uL (1.0-5.5); LYMPHOCYTES % (AUTO) 9.5 % (20.5-51.5); MEAN CORPUSCULAR HEMOGLOBIN 27 pg (27-31); MEAN CORPUSCULAR HGB CONC 31 % (32-36); MEAN CORPUSCULAR VOLUME 84 fL (79.0-98.0); MONOCYTES # (AUTO) 0.5 K/uL (0.0-1.0); MONOCYTES % (AUTO) 5.3 % (1.7-9.3); NEUTROPHILS # (AUTO) 7.3 K/uL (1.8-7.7); NEUTROPHILS % (AUTO) 80.7 % (40.0-70.0); PLATELET COUNT (AUTO) 350 K/uL (130-430); RED BLOOD CELL COUNT(AUTO) 3.25 MIL/uL (4.2-6.2); RED CELL DISTRIBUTION WIDTH 15.1 % (9.0-15.0)
[2023-06-02 06:24] LABS: ERYTHROCYTE SEDIMENTATION RATE 64 MM/HR (0-20)
[2023-06-02 06:50] LABS: ALBUMIN 3.8 g/dL (3.4-4.8); PHOSPHORUS 7.2 mg/dL (2.7-4.5); POTASSIUM 4.9 mmol/L (3.5-5.1); TOTAL BILIRUBIN 0.4 mg/dL (0.0-1.0); TOTAL PROTEIN, SERUM 7.7 g/dL (6.4-8.3)
[2023-06-02 06:52] LABS: CREATININE 10.49 mg/dL (0.55-1.30)
[2023-06-02] MEDS: SEVELAMER CARBONATE 800 MG TABLET PO SCH ×5 (07:23→17:59)
[2023-06-02 08:00] VITALS: BP_SYST 161; PULSE 85; RESP 18; TEMP 97.7; O2SAT 98
[2023-06-02] MEDS: ATORVASTATIN 20 MG TABLET PO SCH (08:11)
[2023-06-02] MEDS: NEPHROVITE, (FOLIC ACID/VITAMIN B COMP W-C 1 TAB) PO SCH (08:11)
[2023-06-02] MEDS: HYDROcodone/ACETAMIN 5-325 MG TAB (NORCO/ VICODIN) PO PRN ×3 (08:11→21:37)
[2023-06-02] MEDS: amLODIPine BESYLATE 10 MG TABLET PO SCH (08:12)
[2023-06-02 11:00] VITALS: O2SAT 98
[2023-06-02] MEDS ORDERED: LEVO250T73 PO (11:14)
[2023-06-02 12:00] VITALS: BP_SYST 146; PULSE 81; RESP 18; TEMP 98.1; O2SAT 95
[2023-06-02 16:00] VITALS: BP_SYST 117; PULSE 80; RESP 16; TEMP 98.1; O2SAT 98
[2023-06-02] MEDS: EPOETIN ALFA-EPBX 4,000 UNITS/ML VIAL SUBCUT SCH (17:00)
[2023-06-02] MEDS: ACETAMINOPHEN 325 MG TABLET PO PRN (18:00)
[2023-06-02 20:00] VITALS: O2SAT 98
[2023-06-03] VITALS (8 sets, daily range): BP systolic 118–139; PULSE 70–82; RESP 18–20; TEMP 97.6–98.4; O2SAT 95–100
[2023-06-03 07:32] LABS: CALCIUM 10.2 mg/dL (8.4-11.0); PHOSPHORUS 8.2 mg/dL (2.7-4.5); POTASSIUM 5.1 mmol/L (3.5-5.1)
[2023-06-03 07:46] LABS: CREATININE 12.45 mg/dL (0.55-1.30)
[2023-06-03] MEDS: SEVELAMER CARBONATE 800 MG TABLET PO SCH ×3 (08:00→17:46)
[2023-06-03 08:15] LABS: BASOPHILS # (AUTO) 0.1 K/uL (0.0-0.2); BASOPHILS % (AUTO) 0.8 % (0.0-2.0); EOSINOPHILS # (AUTO) 0.4 K/uL (0.0-0.4); EOSINOPHILS % (AUTO) 4.8 % (0.0-4.0); HEMATOCRIT 25.5 % (36-48); HEMOGLOBIN 8.3 g/dL (12.0-16.0); LYMPHOCYTES # (AUTO) 1.1 K/uL (1.0-5.5); LYMPHOCYTES % (AUTO) 12.2 % (20.5-51.5); MEAN CORPUSCULAR HEMOGLOBIN 28 pg (27-31); MEAN CORPUSCULAR HGB CONC 33 % (32-36); MEAN CORPUSCULAR VOLUME 84 fL (79.0-98.0); MONOCYTES # (AUTO) 0.5 K/uL (0.0-1.0); MONOCYTES % (AUTO) 5.9 % (1.7-9.3); NEUTROPHILS # (AUTO) 6.8 K/uL (1.8-7.7); NEUTROPHILS % (AUTO) 76.3 % (40.0-70.0); PLATELET COUNT (AUTO) 371 K/uL (130-430); RED BLOOD CELL COUNT(AUTO) 3.03 MIL/uL (4.2-6.2); RED CELL DISTRIBUTION WIDTH 14.9 % (9.0-15.0); WHITE BLOOD COUNT (AUTO) 8.9 K/uL (4.8-10.8)
[2023-06-03 08:21] LABS: ERYTHROCYTE SEDIMENTATION RATE 52 MM/HR (0-20)
[2023-06-03] MEDS: ATORVASTATIN 20 MG TABLET PO SCH ×2 (09:00→13:04)
[2023-06-03] MEDS: NEPHROVITE, (FOLIC ACID/VITAMIN B COMP W-C 1 TAB) PO SCH ×2 (09:00→13:03)
[2023-06-03] MEDS: amLODIPine BESYLATE 10 MG TABLET PO SCH (09:00)
[2023-06-03] MEDS: HYDROcodone/ACETAMIN 5-325 MG TAB (NORCO/ VICODIN) PO PRN ×3 (09:00→17:48)
[2023-06-03] MEDS: MORPHINE 2 MG/ML INJ. SYRINGE IVP PRN (21:02)
[2023-06-03] MEDS: ONDANSETRON HCL 4 MG/2 ML VIAL IVP PRN (21:02)
[2023-06-03] MEDS: LEVOFLOXACIN 250 MG/D5W 50 ML IV SCH (21:03)
[2023-06-04 02:20] VITALS: BP_SYST 122; PULSE 72; RESP 17; TEMP 97.8; O2SAT 99
[2023-06-04] MEDS: HYDROcodone/ACETAMIN 5-325 MG TAB (NORCO/ VICODIN) PO PRN ×3 (05:22→18:07)
[2023-06-04 07:44] LABS: BASOPHILS # (AUTO) 0.1 K/uL (0.0-0.2); BASOPHILS % (AUTO) 0.7 % (0.0-2.0); EOSINOPHILS # (AUTO) 0.4 K/uL (0.0-0.4); EOSINOPHILS % (AUTO) 4.7 % (0.0-4.0); HEMATOCRIT 28.7 % (36-48); LYMPHOCYTES # (AUTO) 1.3 K/uL (1.0-5.5); LYMPHOCYTES % (AUTO) 14.9 % (20.5-51.5); MEAN CORPUSCULAR HEMOGLOBIN 27 pg (27-31); MEAN CORPUSCULAR HGB CONC 31 % (32-36); MEAN CORPUSCULAR VOLUME 84 fL (79.0-98.0); MONOCYTES # (AUTO) 0.6 K/uL (0.0-1.0); MONOCYTES % (AUTO) 6.8 % (1.7-9.3); NEUTROPHILS # (AUTO) 6.6 K/uL (1.8-7.7); NEUTROPHILS % (AUTO) 72.9 % (40.0-70.0); PLATELET COUNT (AUTO) 405 K/uL (130-430)
[2023-06-04 07:51] LABS: ERYTHROCYTE SEDIMENTATION RATE 50 MM/HR (0-20)
[2023-06-04 07:58] LABS: CALCIUM 9.6 mg/dL (8.4-11.0); POTASSIUM 5.2 mmol/L (3.5-5.1)
[2023-06-04 08:00] VITALS: BP_SYST 139; PULSE 78; RESP 18; TEMP 98.8; O2SAT 99
[2023-06-04 08:04] LABS: CREATININE 10.14 mg/dL (0.55-1.30)
[2023-06-04] MEDS: NEPHROVITE, (FOLIC ACID/VITAMIN B COMP W-C 1 TAB) PO SCH (08:40)
[2023-06-04] MEDS: amLODIPine BESYLATE 10 MG TABLET PO SCH (08:41)
[2023-06-04] MEDS: SEVELAMER CARBONATE 800 MG TABLET PO SCH ×3 (08:42→18:03)
[2023-06-04] MEDS: ATORVASTATIN 20 MG TABLET PO SCH (08:42)
[2023-06-04 12:00] VITALS: BP_SYST 129; PULSE 75; RESP 20; TEMP 98.6; O2SAT 99
[2023-06-04 16:00] VITALS: BP_SYST 125; PULSE 73; RESP 20; TEMP 97; O2SAT 99
[2023-06-04] MEDS ORDERED: LORazepam 2 MG/ML VIAL IVP ONE (16:00)
[2023-06-04 20:00] VITALS: BP_SYST 136; PULSE 77; RESP 19; TEMP 97.9; O2SAT 98
[2023-06-04 22:30] VITALS: O2SAT 98
[2023-06-05] VITALS (7 sets, daily range): BP systolic 129–141; PULSE 72–83; RESP 18–20; TEMP 98–98.8; O2SAT 96–100
[2023-06-05 05:29] LABS: ERYTHROCYTE SEDIMENTATION RATE 20 MM/HR (0-20)
[2023-06-05 05:37] LABS: BASOPHILS # (AUTO) 0.1 K/uL (0.0-0.2); BASOPHILS % (AUTO) 0.9 % (0.0-2.0); EOSINOPHILS # (AUTO) 0.4 K/uL (0.0-0.4); EOSINOPHILS % (AUTO) 3.8 % (0.0-4.0); HEMATOCRIT 27.3 % (36-48); HEMOGLOBIN 8.6 g/dL (12.0-16.0); LYMPHOCYTES # (AUTO) 1.4 K/uL (1.0-5.5); LYMPHOCYTES % (AUTO) 13.8 % (20.5-51.5); MEAN CORPUSCULAR HEMOGLOBIN 27 pg (27-31); MEAN CORPUSCULAR HGB CONC 32 % (32-36); MEAN CORPUSCULAR VOLUME 85 fL (79.0-98.0); MONOCYTES # (AUTO) 0.6 K/uL (0.0-1.0); MONOCYTES % (AUTO) 6.1 % (1.7-9.3); NEUTROPHILS # (AUTO) 7.5 K/uL (1.8-7.7); NEUTROPHILS % (AUTO) 75.4 % (40.0-70.0); PLATELET COUNT (AUTO) 386 K/uL (130-430); RED BLOOD CELL COUNT(AUTO) 3.22 MIL/uL (4.2-6.2); RED CELL DISTRIBUTION WIDTH 15.2 % (9.0-15.0); WHITE BLOOD COUNT (AUTO) 9.9 K/uL (4.8-10.8)
[2023-06-05 06:31] LABS: ALBUMIN 3.6 g/dL (3.4-4.8); CALCIUM 9.5 mg/dL (8.4-11.0); PHOSPHORUS 7.4 mg/dL (2.7-4.5); POTASSIUM 5.6 mmol/L (3.5-5.1); TOTAL BILIRUBIN 0.4 mg/dL (0.0-1.0); TOTAL PROTEIN, SERUM 7.4 g/dL (6.4-8.3)
[2023-06-05 07:24] LABS: CREATININE 11.89 mg/dL (0.55-1.30)
[2023-06-05] MEDS: ATORVASTATIN 20 MG TABLET PO SCH (08:39)
[2023-06-05] MEDS: SEVELAMER CARBONATE 800 MG TABLET PO SCH ×3 (08:40→17:42)
[2023-06-05] MEDS: NEPHROVITE, (FOLIC ACID/VITAMIN B COMP W-C 1 TAB) PO SCH (08:40)
[2023-06-05] MEDS: HYDROcodone/ACETAMIN 5-325 MG TAB (NORCO/ VICODIN) PO PRN ×4 (08:41→20:43)
[2023-06-05] MEDS ORDERED: ASPIRIN 81 MG TABLET(ECOTRIN) PO ONE (10:00)
[2023-06-05] MEDS: amLODIPine BESYLATE 10 MG TABLET PO SCH (12:02)
[2023-06-05] MEDS: EPOETIN ALFA-EPBX 4,000 UNITS/ML VIAL SUBCUT SCH (16:43)
[2023-06-05] MEDS: LEVOFLOXACIN 250 MG/D5W 50 ML IV SCH (21:55)
[2023-06-06] VITALS (7 sets, daily range): BP systolic 107–146; PULSE 55–88; RESP 16–20; TEMP 97.8–98.4; O2SAT 94–100
[2023-06-06] MEDS: HYDROcodone/ACETAMIN 5-325 MG TAB (NORCO/ VICODIN) PO PRN ×3 (01:02→14:13)
[2023-06-06] MEDS: SEVELAMER CARBONATE 800 MG TABLET PO SCH ×3 (08:08→19:48)
[2023-06-06] MEDS: NEPHROVITE, (FOLIC ACID/VITAMIN B COMP W-C 1 TAB) PO SCH (08:08)
[2023-06-06] MEDS: ATORVASTATIN 20 MG TABLET PO SCH (08:08)
[2023-06-06] MEDS: amLODIPine BESYLATE 10 MG TABLET PO SCH ×2 (08:09→08:11)
== END 2023-06-06 20:45 | disposition home health service (06) | DRG 291 ==
LOC: SED 14:11 → STU 16:46 → SMU 05-31 10:44
PROVIDERS: ADMIT Family Medicine; ATTEND Family Medicine
PROC: 5A1D70Z Performance of Urinary Filtration, Intermittent, Less than 6 Hours Per Day (ICD-10-PCS; principal; 2023-05-27)
PROC: 5A09357 Assistance with Respiratory Ventilation, Less than 24 Consecutive Hours, Continuous Positive Airway Pressure (ICD-10-PCS; 2023-05-27)
PROC: 5A1D70Z Performance of Urinary Filtration, Intermittent, Less than 6 Hours Per Day (ICD-10-PCS; 2023-05-28)
PROC: 5A1D70Z Performance of Urinary Filtration, Intermittent, Less than 6 Hours Per Day (ICD-10-PCS; 2023-05-30)
PROC: 05HY33Z Insertion of Infusion Device into Upper Vein, Percutaneous Approach (ICD-10-PCS; 2023-05-30)
PROC: B54MZZA Ultrasonography of Right Upper Extremity Veins, Guidance (ICD-10-PCS; 2023-05-30)
PROC: 5A1D70Z Performance of Urinary Filtration, Intermittent, Less than 6 Hours Per Day (ICD-10-PCS; 2023-06-01)
PROC: 5A1D70Z Performance of Urinary Filtration, Intermittent, Less than 6 Hours Per Day (ICD-10-PCS; 2023-06-03)
PROC: 5A1D70Z Performance of Urinary Filtration, Intermittent, Less than 6 Hours Per Day (ICD-10-PCS; 2023-06-05)
PROC: 5A1D70Z Performance of Urinary Filtration, Intermittent, Less than 6 Hours Per Day (ICD-10-PCS; 2023-06-06)
DX: I13.2 Hypertensive heart and chronic kidney disease with heart failure and with stage 5 chronic kidney disease, or end stage renal disease (principal); I50.43 Acute on chronic combined systolic (congestive) and diastolic (congestive) heart failure; J96.01 Acute respiratory failure with hypoxia; N18.6 End stage renal disease; J44.0 Chronic obstructive pulmonary disease with (acute) lower respiratory infection; E87.0 Hyperosmolality and hypernatremia; R65.10 Systemic inflammatory response syndrome (SIRS) of non-infectious origin without acute organ dysfunction; D63.1 Anemia in chronic kidney disease; E87.5 Hyperkalemia; E87.8 Other disorders of electrolyte and fluid balance, not elsewhere classified; E83.51 Hypocalcemia; E83.41 Hypermagnesemia; E83.39 Other disorders of phosphorus metabolism; E66.01 Morbid (severe) obesity due to excess calories; I35.0 Nonrheumatic aortic (valve) stenosis; Z20.822 Contact with and (suspected) exposure to COVID-19; E78.5 Hyperlipidemia, unspecified; Z88.0 Allergy status to penicillin; Z91.012 Allergy to eggs; Z79.899 Other long term (current) drug therapy; Z99.2 Dependence on renal dialysis; Z85.528 Personal history of other malignant neoplasm of kidney; Z91.199 Patient's noncompliance with other medical treatment and regimen due to unspecified reason; Z68.37 Body mass index [BMI] 37.0-37.9, adult
CPT/HCPCS: 36415; 71045; 71250-TC; 76376; 80048; 80053; 80076; 83605; 83735; 83880; 84100; 84484; 85025; 85610-TC; 85651-TC; 85730-TC; 87040; 87081; 90935; 90937; 93005; 94760; 96365; 96375; 97163-GP; 99285; G0378; J0360; J0692; J1940; J1956; J2060; J2270; J2405; J3370; Q5106